=== PATIENT | male | born 1975 | race Caucasian/White ===

== ENCOUNTER → 2017-01-30 | Outpatient (CLI) | payer OTHER ==
[2017-01-02 08:29] VITALS: BP 146/87
== END | disposition home or self-care (01) ==
LOC: PMGWOUND 07:47
PROVIDERS: ATTEND Preventive Medicine Undersea and Hyperbaric Medicine
DX: E11.621 Type 2 diabetes mellitus with foot ulcer (principal); L97.511 Non-pressure chronic ulcer of other part of right foot limited to breakdown of skin; E11.40 Type 2 diabetes mellitus with diabetic neuropathy, unspecified
CPT/HCPCS: 99213

== ENCOUNTER → 2017-02-13 | Outpatient (CLI) | payer OTHER ==
[2017-01-02 08:29] VITALS: BP 146/87
== END | disposition home or self-care (01) ==
LOC: PMGWOUND 07:53
PROVIDERS: ATTEND Preventive Medicine Undersea and Hyperbaric Medicine
DX: E11.621 Type 2 diabetes mellitus with foot ulcer (principal); L97.511 Non-pressure chronic ulcer of other part of right foot limited to breakdown of skin; E11.40 Type 2 diabetes mellitus with diabetic neuropathy, unspecified
CPT/HCPCS: 99214

== ENCOUNTER 2017-03-06 09:54 | Inpatient (IN) | payer OTHER ==
[~2017-03-06] VITALS: Ht 175.3 cm; Wt 100.5 kg
[2017-03-06] MEDS ORDERED: VANCOMYCIN PER PHARMACY MC ONE (10:15)
--- NOTE | 2017-03-06 10:35 | RAD ---
Indication infection lateral metatarsal area. Assess for potential osteomyelitis. AP oblique and lateral views of the right foot were obtained. There is a soft tissue irregularity lateral to the fifth metatarsal head. No acute bony finding is seen. Plain film findings of osteomyelitis are not seen
[2017-03-06 10:36] LABS: BASO # 0.1 x10^3/uL (0.0-0.2); BASO % 0 % (0-3); EOS % 1 % (0-3); HEMATOCRIT 39.9 % (39.0-53.0); HEMOGLOBIN 13.7 g/dL (13.0-17.5); LYMPH # 1.3 x10^3/uL (1.0-4.8); LYMPH % 9 % (24-48); MEAN CORPUSCULAR HEMOGLOBIN 29 pg (25-35); MEAN CORPUSCULAR HGB CONC 34 g/dL (31-37); MEAN CORPUSCULAR VOLUME 84 fL (79-100); MONO % 8 % (0-9); NEUT % 82 % (31-73); PLATELET COUNT 489 x10^3/uL (140-400); RED BLOOD COUNT 4.77 x10^6/uL (4.30-5.70); RED CELL DISTRIBUTION WIDTH 11.8 % (11.5-14.5); WHITE BLOOD COUNT 14.6 x10^3/uL (4.0-11.0)
[2017-03-06 10:45] LABS: CALCIUM 9.4 mg/dL (8.5-10.1); CREATININE 0.7 mg/dL (0.7-1.3); GFR 123.1; POTASSIUM 4.2 mmol/L (3.5-5.1)
[2017-03-06] MEDS ORDERED: ONDANSETRON PF 4 MG/2 ML VIAL. IV PRN (11:00)
[2017-03-06] MEDS ORDERED: IV NORMAL SALINE 1000ML BAG 1,000 ML IV ONE (11:00)
[2017-03-06] MEDS ORDERED: ACETAMINOPHEN 325 MG TABLET. PO PRN (11:00)
[2017-03-06] MEDS ORDERED: VANCOMYCIN 2 GM in IV NORMAL SALINE 500ML BAG 500 ML IV ONE (11:00)
[2017-03-06] MEDS: fentaNYL PF VIAL 100 MCG/2 ML VIAL IV PRN (11:31)
[2017-03-06 12:22] VITALS: BP 157/80
[2017-03-06] MEDS ORDERED: VANCOMYCIN PER PHARMACY MC PRN (12:30)
[2017-03-06] MEDS ORDERED: HYDR-2666 PO (12:35)
--- NOTE | 2017-03-06 12:46 | PHYS DOC ---
Past Medical History Past Medical History: Diabetes-Type II Past Surgical History: Tonsillectomy Alcohol Use: Occasionally Drug Use: None Adult General Chief Complaint Chief Complaint: OTHER COMPLAINTS HPI HPI This is a 41-year-old male who presents with a wound to the right base of his fifth metatarsal. Patient was sent here by Dr. Rainey at the wound clinic for wound evaluation. Dr. Rainey states the patient has had significant deep ulceration to that area with concern for osteomyelitis as well as some noted streaking and cellulitis to the anterior tibial surfaced that has worsened for the last several days. Patient is a known diabetic and is not taking insulin at this time. He states he is in between doctors but should normally be taking insulin. He denies any fever or chills. He is nontoxic and afebrile upon my initial assessment. Review of Systems Review of Systems Constitutional: Denies fever or chills [] Eyes: Denies change in visual acuity, redness, or eye pain [] HENT: Denies nasal congestion or sore throat [] Respiratory: Denies cough or shortness of breath [] Cardiovascular: No additional information not addressed in HPI [] GI: Denies abdominal pain, nausea, vomiting, bloody stools or diarrhea [] : Denies dysuria or hematuria [] Musculoskeletal: Denies back pain or joint pain [] Integument: Denies rash or skin lesions [] Neurologic: Denies headache, focal weakness or sensory changes [] Endocrine: Denies polyuria or polydipsia [] Current Medications Current Medications Current Medications Medications (Trade) Dose Ordered Sig/Madhuri Start Time Stop Time Status Last Admin Dose Admin Acetaminophen (Tylenol) 650 mg PRN Q4HRS PRN 03/06/17 11:00 03/07/17 10:59 Fentanyl Citrate (Fentanyl 2ml Vial) 50 mcg PRN Q2HR PRN 03/06/17 11:00 03/07/17 10:59 03/06/17 11:31 50 MCG Ondansetron HCl (Zofran) 4 mg PRN Q8HRS PRN 03/06/17 11:00 03/07/17 10:59 Sodium Chloride 1,000 ml @ 125 mls/hr Q8H 03/06/17 10:56 03/07/17 10:55 03/06/17 14:01 125 MLS/HR Vancomycin HCl (Vanco Per Pharmacy) 1 each 1X ONCE 03/06/17 10:15 03/06/17 11:48 DC 03/06/17 10:15 1 EACH Vancomycin HCl 2 gm/Sodium Chloride 500 ml @ 250 mls/hr 1X ONCE 03/06/17 11:00 03/06/17 12:59 DC 03/06/17 11:30 250 MLS/HR Allergies Allergies Allergies Coded Allergies Type Severity Reaction Last Updated Verified codeine Allergy Intermediate Hives 08/18/16 Yes Physical Exam Physical Exam Constitutional: Well developed, well nourished, no acute distress, non-toxic appearance. [] HENT: Normocephalic, atraumatic, bilateral external ears normal, oropharynx moist, no oral exudates, nose normal. [] Eyes: PERRLA, EOMI, conjunctiva normal, no discharge. [] Neck: Normal range of motion, no tenderness, supple, no stridor. [] Cardiovascular:Heart rate regular rhythm, no murmur [] Lungs & Thorax: Bilateral breath sounds clear to auscultation [] Abdomen: Bowel sounds normal, soft, no tenderness, no masses, no pulsatile masses. [] Skin: Warm, dry, no erythema, no rash. [] Back: No tenderness, no CVA tenderness. [] Extremities: There is tenderness and significant ulceration to the base of the fifth metatarsal with noted cellulitic stranding extending from the surface of the wound along the dorsum of the foot and to the anterior tibial surface, there is packing in the wound site, no cyanosis, no clubbing, ROM intact, no edema. [] Neurologic: Alert and oriented X 3, normal motor function, normal sensory function, no focal deficits noted. [] Psychologic: Affect normal, judgement normal, mood normal. [] Current Patient Data Vital Signs Vital Signs Date Time Temp Pulse Resp B/P (MAP) Pulse Ox O2 Delivery O2 Flow Rate FiO2 03/06/17 10:20 98.2 96 20 148/81 (103) 97 Room Air 98.2 Lab Values Laboratory Tests Test 03/06/17 10:25 White Blood Count 14.6 x10^3/uL (4.0-11.0) H Red Blood Count 4.77 x10^6/uL (4.30-5.70) Hemoglobin 13.7 g/dL (13.0-17.5) Hematocrit 39.9 % (39.0-53.0) Mean Corpuscular Volume 84 fL (79-100) Mean Corpuscular Hemoglobin 29 pg (25-35) Mean Corpuscular Hemoglobin Concent 34 g/dL (31-37) Red Cell Distribution Width 11.8 % (11.5-14.5) Platelet Count 489 x10^3/uL (140-400) H Neutrophils (%) (Auto) 82 % (31-73) H Lymphocytes (%) (Auto) 9 % (24-48) L Monocytes (%) (Auto) 8 % (0-9) Eosinophils (%) (Auto) 1 % (0-3) Basophils (%) (Auto) 0 % (0-3) Neutrophils # (Auto) 11.9 x10^3uL (1.8-7.7) H Lymphocytes # (Auto) 1.3 x10^3/uL (1.0-4.8) Monocytes # (Auto) 1.2 x10^3/uL (0.0-1.1) H Eosinophils # (Auto) 0.1 x10^3/uL (0.0-0.7) Basophils # (Auto) 0.1 x10^3/uL (0.0-0.2) Sodium Level 134 mmol/L (136-145) L Potassium Level 4.2 mmol/L (3.5-5.1) Chloride Level 95 mmol/L (98-107) L Carbon Dioxide Level 23 mmol/L (21-32) Anion Gap 16 (6-14) H Blood Urea Nitrogen 15 mg/dL (8-26) Creatinine 0.7 mg/dL (0.7-1.3) Estimated GFR (Cockcroft-Gault) 123.1 Glucose Level 269 mg/dL (70-99) H Lactic Acid Level 1.6 mmol/L (0.4-2.0) Calcium Level 9.4 mg/dL (8.5-10.1) Laboratory Tests 03/06/17 10:25 Laboratory Tests 03/06/17 10:25 EKG EKG [] Radiology/Procedures Radiology/Procedures Indication infection lateral metatarsal area. Assess for potential osteomyelitis. AP oblique and lateral views of the right foot were obtained. There is a soft tissue irregularity lateral to the fifth metatarsal head. No acute bony finding is seen. Plain film findings of osteomyelitis are not seen Course & Med Decision Making Course & Med Decision Making Pertinent Labs and Imaging studies reviewed. (See chart for details) Laboratory workup was remarkable for an elevated blood glucose of 269. He also has a leukocytosis. There are no other sniffed it findings. His x-ray taken of the right foot shows some soft tissue irregularity to the lateral fifth metatarsal head but no acute bony finding is seen. There were no findings of osteomyelitis on the plain film. A dose of IV vancomycin was given as the patient has history of staph infection and is unsure if he has any history of resistant infection. His case was discussed with the hospitalist, Dr. Simon, who agreed to accept the patient for further evaluation and treatment. Wound consult to Dr. Rainey was placed and surgery consult was also placed for wound eval and possible debridement. Dragon Disclaimer Dragon Disclaimer This electronic medical record was generated, in whole or in part, using a voice recognition dictation system. Departure Departure Impression: Primary Impression: Type 2 diabetes mellitus with foot ulcer Additional Impression: Cellulitis Disposition: ADMITTED INPATIENT Admitting Physician: Chapis Simon Condition: STABLE Referrals: NO PCP (PCP) Problem Qualifiers LUKAS ROSAS DO March 06, 2017 12:46
--- NOTE | 2017-03-06 13:00 | ACF ---
Admission Forms Criteria CELLULITIS Clinical Indications for Admission to Inpatient Care (Place 'X' for any and all applicable criteria): Admission is indicated for ANY ONE of the following(1)(2)(3)(4)(5): [ ]I. Limb-threatening infection [ ]II. High-risk comorbid condition as indicated by ANY ONE of the following: [ ]a) Uncontrolled diabetes (eg, HbA1c greater than 10% (0.1)) [ ]b) Cirrhosis [ ]c) Neutropenia [ ]d) Asplenia [ ]e) Immunosuppression [ ]f) Symptomatic heart failure [ ]III. Failure of outpatient therapy as indicated by ALL of the following: [ ]a) Progression or no improvement after adequate trial (minimum of 48 hours, with longer period for stable lower extremity infection) [ ]b) Adequate antibiotic regimen as indicated by use of ANY ONE of the following: [ ]i) First-generation cephalosporin (e.g., cephalexin) [ ]ii) Antistaphylococcal penicillin (e.g., dicloxacillin) [ ]iii) Penicillin-allergic patient regimen (clindamycin, extended-spectrum fluoroquinolone, or doxycycline) [ ]iv) Resistant organism (eg, methicillin-resistant Staphylococcus aureus) regimen (6) [ ]c) Outpatient intravenous therapy regimen is not appropriate due to ANY ONE of the following. (7)(8)(9)(10): [ ]i) It was tried and was not successful (eg, progression of infection). [ ]ii) It is not available or cannot be arranged in a clinically appropriate time frame (e.g., the next day). [ ]iii) Clinical presentation (eg, acuity of infection, rapidity of progression, confirmed or suspected bacteremia) is judged to require ALL of the following: [ ]1) Immediate initiation of intravenous therapy ( eg, cannot wait for next day) [ ]2) Intensity of patient monitoring and observation (eg, vital sign measurement, checks for infection progression) that cannot be provided at other than inpatient level of care [ ]IV. Mental status changes [ ]V. Bacteremia [ ]. Hemodynamic instability [ ]VII. Suspected necrotizing soft tissue infection (e.g., gas in tissue)(11)( 12) [ ]VIII. Orbital infection (13)(14) [ ]IX. Associated surgical procedure (e.g., abscess drainage, debridement) not amenable to outpatient, emergency department, or observation care [ ]X. Cutaneous gangrene [ ]XI. High fever (temperature greater than 39.5 degrees C (103.1 degrees F) (oral)) not responsive to outpatient, emergency department, or observation care therapy [X]XIII. Inpatient admission required rather than observation care (Also use Cellulitis: Observation Care as appropriate) because of ANY ONE of the following : [ ]a) Periorbital or perineal infection that is severe or worsening [ ]b) Severe pain requiring acute inpatient management [ ]c) IV fluid to replace significant ongoing (e.g., for over 24 hours) losses (greater than 3L/m2 per day) [ ]d) Compartment syndrome monitoring (17) [ ]e) Strict or protective (eg, laminar flow) isolation [ ]f) Urgent debridement or skin grafting [ ]g) Bone or joint debridement [ ]h) Immediate inpatient surgery [X]i) Other condition, treatment or monitoring requiring inpatient admission Extended stay beyond goal length of stay may be needed for (1)(18): [ ]a) Necrotizing soft tissue infection or fasciitis [ ]b) Gram-negative infection [ ]c) Methicillin-resistant Staphylococcal aureus (MRSA) infection [ ]d) Peripheral venous insufficiency with cellulitis [ ]e) Extensive edema [ ]f) Sepsis or continued Hemodynamic instability [ ]g) Continued high fever or mental status change [ ]h) Bacteremia [ ]i) Active serious comorbid conditions ( eg, heart failure, renal insufficiency) The original [facility] content created by [facility] has been revised. The portions of the content which have been revised are identified through the use of italic text or in bold, and [facility] has neither reviewed nor approved the modified material. All other unmodified content is copyright [facility] [employer] Please see references footnoted in the original [facility] [employer] edition 2016 Admission Criteria Met?: Yes KARLEY JONES March 06, 2017 13:00
[2017-03-06 13:10] VITALS: BP 151/80
--- NOTE | 2017-03-06 13:20 | PDOC ---
Infectious Disease Note Vital Sign Vital Signs Vital Signs Date Time Temp Pulse Resp B/P (MAP) Pulse Ox O2 Delivery O2 Flow Rate FiO2 03/06/17 13:10 97.9 95 18 151/80 (103) 99 Room Air 97.9 Labs Lab Laboratory Tests Test 03/06/17 10:25 White Blood Count 14.6 x10^3/uL (4.0-11.0) Red Blood Count 4.77 x10^6/uL (4.30-5.70) Hemoglobin 13.7 g/dL (13.0-17.5) Hematocrit 39.9 % (39.0-53.0) Mean Corpuscular Volume 84 fL (79-100) Mean Corpuscular Hemoglobin 29 pg (25-35) Mean Corpuscular Hemoglobin Concent 34 g/dL (31-37) Red Cell Distribution Width 11.8 % (11.5-14.5) Platelet Count 489 x10^3/uL (140-400) Neutrophils (%) (Auto) 82 % (31-73) Lymphocytes (%) (Auto) 9 % (24-48) Monocytes (%) (Auto) 8 % (0-9) Eosinophils (%) (Auto) 1 % (0-3) Basophils (%) (Auto) 0 % (0-3) Neutrophils # (Auto) 11.9 x10^3uL (1.8-7.7) Lymphocytes # (Auto) 1.3 x10^3/uL (1.0-4.8) Monocytes # (Auto) 1.2 x10^3/uL (0.0-1.1) Eosinophils # (Auto) 0.1 x10^3/uL (0.0-0.7) Basophils # (Auto) 0.1 x10^3/uL (0.0-0.2) Sodium Level 134 mmol/L (136-145) Potassium Level 4.2 mmol/L (3.5-5.1) Chloride Level 95 mmol/L (98-107) Carbon Dioxide Level 23 mmol/L (21-32) Anion Gap 16 (6-14) Blood Urea Nitrogen 15 mg/dL (8-26) Creatinine 0.7 mg/dL (0.7-1.3) Estimated GFR (Cockcroft-Gault) 123.1 Glucose Level 269 mg/dL (70-99) Lactic Acid Level 1.6 mmol/L (0.4-2.0) Calcium Level 9.4 mg/dL (8.5-10.1) Objective Assessment Rt foot wound Rt foot cellulitis DM Plan Plan of Care vanc and rocephine culture taken off load mri EFRAIN CLAROS MD March 06, 2017 13:20
[2017-03-06] MEDS ORDERED: LISINOPRIL 10 MG TABLET PO ONE (14:00)
[2017-03-06] MEDS ORDERED: DEXTROSE 50% 25 GM / 50ML DISP.SYRIN. IV PRN (14:00)
[2017-03-06] MEDS: IV NORMAL SALINE 1000ML BAG 1,000 ML IV SCH ×2 (14:01→18:56)
[2017-03-06 14:45] VITALS: BP 138/74
--- NOTE | 2017-03-06 15:43 | PDOC1 ---
History and Physical Date of Admission Date of Admission DATE: 03/06/17 TIME: 15:32 Identification/Chief Complaint Chief Complaint foot pain Problems: Source Source: Chart review, Patient History of Present Illness History of Present Illness Mr. Ma is a 41-year-old male admit w. acute worsening of wound to the right base of his fifth metatarsal. Dr. 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 DM2, some intentional weight loss, pt off meds for 6 mos, as he is changing doctors. no current meds, but has insurance. Wound has good blood flow per wound care, base bleeds brinkly with min provocation and base has granualated nicely. now, new concern for osteomyelitis as well as some noted streaking and cellulitis to the anterior tibial Past Medical History Cardiovascular: No pertinent hx Pulmonary: No pertinent hx GI: No pertinent hx Heme/Onc: No pertinent hx Hepatobiliary: No pertinent hx Endocrine: Diabetes Past Surgical History Past Surgical History: No pertinent history Family History Family History: No Significant Social History Smoke: No ALCOHOL: none Drugs: None Current Problem List Problem List Problems Medical Problems: (1) Cellulitis Status: Acute (2) Type 2 diabetes mellitus with foot ulcer Status: Acute Problems: Current Medications Current Medications Current Medications Vancomycin HCl (Vanco Per Pharmacy) 1 each 1X ONCE MC Last administered on 03/06 10:15; Start 03/06/17 at 10:15; Stop 03/06/17 at 11:48; Status DC Vancomycin HCl 2 gm/Sodium Chloride 500 ml @ 250 mls/hr 1X ONCE IV Last administered on 03/06/17 11:30; Start 03/06/17 at 11:00; Stop 03/06/17 at 12:59; Status DC Sodium Chloride 1,000 ml @ 1,000 mls/hr 1X ONCE IV Last administered on 11:30; Start 03/06/17 at 11:00; Stop 03/06/17 at 11:59; Status DC Ondansetron HCl (Zofran) 4 mg PRN Q8HRS PRN IV NAUSEA/VOMITING; Start 03/06/17 at 11:00; Stop 03/07/17 at 10:59 Fentanyl Citrate (Fentanyl 2ml Vial) 50 mcg PRN Q2HR PRN IV PAIN Last administered on 03/06/17 11:31; Start 03/06/17 at 11:00; Stop 03/07/17 at 10:59 Sodium Chloride 1,000 ml @ 125 mls/hr Q8H IV Last administered on 03/06/17 14: 01; Start 03/06/17 at 10:56; Stop 03/07/17 at 10:55 Acetaminophen (Tylenol) 650 mg PRN Q4HRS PRN PO FEVER; Start 03/06/17 at 11:00; Stop 03/07/17 at 10:59 Vancomycin HCl 1.5 gm/Sodium Chloride 500 ml @ 250 mls/hr Q8H IV ; Start at 17:30 Vancomycin HCl 1 each 1X ONCE MC ; Start 03/07/17 at 11:00; Stop 03/07/17 at 11: 01 Vancomycin HCl (Vanco Per Pharmacy) 1 each PRN DAILY PRN MC PRN; Start 03/06/17 at 12:30 Ceftriaxone Sodium 1 gm/ Sodium Chloride 50 ml @ 100 mls/hr Q24H IV Last administered on 03/06/17 14:00; Start 03/06/17 at 13:30 Acetaminophen/ Hydrocodone Bitart (Lortab 7.5/325) 1 tab PRN Q4HRS PRN PO PAIN ; Start 03/06/17 at 14:00 Insulin Aspart (Novolog) 0-9 UNITS TIDWMEALS SQ ; Start 03/06/17 at 17:00 Dextrose (Dextrose 50%-Water Syringe) 12.5 gm PRN Q15MIN PRN IV SEE COMMENTS; Start 03/06/17 at 14:00 Insulin Detemir (Levemir) 12 units QHS SQ ; Start 03/06/17 at 21:00 Lisinopril (Prinivil) 10 mg 1X ONCE PO Last administered on 03/06/17 14:14; Start 03/06/17 at 14:00; Stop 03/06/17 at 14:01; Status DC Lisinopril (Prinivil) 10 mg DAILY PO ; Start 03/07/17 at 09:00 Active Scripts Active Reported Hydrocodone-Apap 5-325 (Hydrocodone Bit/Acetaminophen) 1 Each Tablet 1 Tab PO PRN Q6HRS PRN Allergies Allergies: Coded Allergies: codeine (Verified Allergy, Intermediate, Hives, 08/18/16) ROS General: No: Chills, Night Sweats, Fatigue, Malaise, Appetite, Other PSYCHOLOGICAL ROS: No: Anxiety, Behavioral Disorder, Concentration difficultie , Decreased libido, Depression, Disorientation, Hallucinations, Hostility, Irritablity, Memory difficulties, Mood Swings, Obsessive thoughts, Physical abuse, Sexual abuse, Sleep disturbances, Suicidal ideation, Other Eyes: No Blurry vision, No Decreased vision, No Double vision, No Dry eyes, No Excessive tearing, No Eye Pain, No Itchy Eyes, No Loss of vision, No Photophobia , No Scotomata, No Uses contacts, No Uses glasses, No Other HEENT: No: Heacaches, Visual Changes, Hearing change, Nasal congestion, Nasal discharge, Oral lesions, Sinus pain, Sore Throat, Epistaxis, Sneezing, Snoring, Tinnitus, Vertigo, Vocal changes, Other Respiratory: No: Cough, Hemoptysis, Orthopnea, Pleuritic Pain, Shortness of breath, SOB with excertion, Sputum Changes, Stridor, Tachypnea, Wheezing, Other Cardiovascular: No Chest Pain, No Palpitations, No Orthopnea, No Paroxysmal Noc. Dyspnea, No Edema, No Lt Headedness, No Other Gastrointestinal: No Nausea, No Vomiting, No Abdominal Pain, No Diarrhea, No Constipation, No Melena, No Hematochezia, No Other Genitourinary: No Dysuria, No Frequency, No Incontinence, No Hematuria, No Retention, No Discharge, No Urgency, No Pain, No Flank Pain, No Other, No , No , No , No , No , No , No Musculoskeletal: Yes Gait Disturbance, Yes Joint Pain, Yes Pain In: (foot), No Joint Stiffness, No Joint Swelling, No Muscle Pain, No Muscular Weakness, No Swelling In:, No Other Neurological: Yes Gait Disturbance, No Behavorial Changes, No Bowel/Bladder ControlChng, No Confusion, No Dizziness, No Headaches, No Impaired Coord/balance, No Memory Loss, No Numbness/ Tingling, No Seizures, No Speech Problems, No Tremors, No Visual Changes, No Weakness, No Other Skin: No Dry Skin, No Eczema, No Hair Changes, No Lumps, No Mole Changes, No Mottling, No Nail Changes, No Pruritus, No Rash, No Skin Lesion Changes, No Other, No Acne Physical Exam General: Alert, Oriented X3, Cooperative, No acute distress HEENT: Atraumatic, PERRLA, EOMI, Mucous membr. moist/pink Lungs: Clear to auscultation, Normal air movement Heart: S1S2, no gallops, no murmurs Abdomen: Normal bowel sounds, Soft Rectal Exam: not examined Extremities: No clubbing, No edema Skin: Other (ulceration and breakdown with some light bleeding from right lateral foot) Neuro: Normal gait, Normal tone, Sensation intact, Cranial nerves 3-12 NL Psych/Mental Status: Mental status NL, Mood NL Vitals Vitals Vital Signs Date Time Temp Pulse Resp B/P (MAP) Pulse Ox O2 Delivery O2 Flow Rate FiO2 03/06/17 14:14 95 151/80 03/06/17 13:33 Room Air 03/06/17 13:10 97.9 18 99 97.9 Labs Labs Laboratory Tests Test 03/06/17 10:25 White Blood Count 14.6 x10^3/uL (4.0-11.0) Red Blood Count 4.77 x10^6/uL (4.30-5.70) Hemoglobin 13.7 g/dL (13.0-17.5) Hematocrit 39.9 % (39.0-53.0) Mean Corpuscular Volume 84 fL (79-100) Mean Corpuscular Hemoglobin 29 pg (25-35) Mean Corpuscular Hemoglobin Concent 34 g/dL (31-37) Red Cell Distribution Width 11.8 % (11.5-14.5) Platelet Count 489 x10^3/uL (140-400) Neutrophils (%) (Auto) 82 % (31-73) Lymphocytes (%) (Auto) 9 % (24-48) Monocytes (%) (Auto) 8 % (0-9) Eosinophils (%) (Auto) 1 % (0-3) Basophils (%) (Auto) 0 % (0-3) Neutrophils # (Auto) 11.9 x10^3uL (1.8-7.7) Lymphocytes # (Auto) 1.3 x10^3/uL (1.0-4.8) Monocytes # (Auto) 1.2 x10^3/uL (0.0-1.1) Eosinophils # (Auto) 0.1 x10^3/uL (0.0-0.7) Basophils # (Auto) 0.1 x10^3/uL (0.0-0.2) Erythrocyte Sedimentation Rate 99 (0-15) Sodium Level 134 mmol/L (136-145) Potassium Level 4.2 mmol/L (3.5-5.1) Chloride Level 95 mmol/L (98-107) Carbon Dioxide Level 23 mmol/L (21-32) Anion Gap 16 (6-14) Blood Urea Nitrogen 15 mg/dL (8-26) Creatinine 0.7 mg/dL (0.7-1.3) Estimated GFR (Cockcroft-Gault) 123.1 Glucose Level 269 mg/dL (70-99) Lactic Acid Level 1.6 mmol/L (0.4-2.0) Calcium Level 9.4 mg/dL (8.5-10.1) Laboratory Tests Test 03/06/17 10:25 White Blood Count 14.6 x10^3/uL (4.0-11.0) Red Blood Count 4.77 x10^6/uL (4.30-5.70) Hemoglobin 13.7 g/dL (13.0-17.5) Hematocrit 39.9 % (39.0-53.0) Mean Corpuscular Volume 84 fL (79-100) Mean Corpuscular Hemoglobin 29 pg (25-35) Mean Corpuscular Hemoglobin Concent 34 g/dL (31-37) Red Cell Distribution Width 11.8 % (11.5-14.5) Platelet Count 489 x10^3/uL (140-400) Neutrophils (%) (Auto) 82 % (31-73) Lymphocytes (%) (Auto) 9 % (24-48) Monocytes (%) (Auto) 8 % (0-9) Eosinophils (%) (Auto) 1 % (0-3) Basophils (%) (Auto) 0 % (0-3) Neutrophils # (Auto) 11.9 x10^3uL (1.8-7.7) Lymphocytes # (Auto) 1.3 x10^3/uL (1.0-4.8) Monocytes # (Auto) 1.2 x10^3/uL (0.0-1.1) Eosinophils # (Auto) 0.1 x10^3/uL (0.0-0.7) Basophils # (Auto) 0.1 x10^3/uL (0.0-0.2) Erythrocyte Sedimentation Rate 99 (0-15) Sodium Level 134 mmol/L (136-145) Potassium Level 4.2 mmol/L (3.5-5.1) Chloride Level 95 mmol/L (98-107) Carbon Dioxide Level 23 mmol/L (21-32) Anion Gap 16 (6-14) Blood Urea Nitrogen 15 mg/dL (8-26) Creatinine 0.7 mg/dL (0.7-1.3) Estimated GFR (Cockcroft-Gault) 123.1 Glucose Level 269 mg/dL (70-99) Lactic Acid Level 1.6 mmol/L (0.4-2.0) Calcium Level 9.4 mg/dL (8.5-10.1) VTE Prophylaxis Ordered VTE Prophylaxis Devices: No VTE Pharmacological Prophylaxi: Yes Assessment/Plan Assessment/Plan acute on chronic wound to lateral foot near 5th metatarsal,. cellulitis, concern for osteomyelitils, tachycardia, leukocytosis, Sepsis ESR high MRI ordered ID, vascular consulted DM2, off meds, start insulin, metformin low dose, check A1c hgb swab nares for staff screen LUI BHARDWAJ MD March 06, 2017 15:43
[2017-03-06] MEDS ORDERED: POLYETHYLENE GLYCOL 3350 17 GM PACKET. PO PRN (15:45)
[2017-03-06] MEDS: HYDROcodone/APAP 7.5/325MG 1 TAB TABLET PO PRN ×2 (15:54→21:10)
[2017-03-06] MEDS ORDERED: GADOBUTROL 10 MMOL/10 ML VIAL IV ONE (16:45)
[2017-03-06] MEDS ORDERED: metFORMIN 500 MG TABLET PO SCH (17:00)
[2017-03-06] MEDS: VANCOMYCIN 1.5 GM in IV NORMAL SALINE 500ML BAG 500 ML IV SCH (17:32)
[2017-03-06] MEDS: INSULIN ASPART 300 UNITS/3 ML INSULN.PEN SQ SCH ×2 (17:39)
[2017-03-06 19:00] VITALS: BP 109/62
[2017-03-06] MEDS: INSULIN DETEMIR 300 UNITS/3 ML INSULN.PEN. SQ SCH (21:17)
[2017-03-06 23:00] VITALS: BP 121/67
[2017-03-07] MEDS: VANCOMYCIN 1.5 GM in IV NORMAL SALINE 500ML BAG 500 ML IV SCH ×3 (01:56→21:46)
[2017-03-07] MEDS: IV NORMAL SALINE 1000ML BAG 1,000 ML IV SCH (01:56)
[2017-03-07 03:00] VITALS: BP 146/80
--- NOTE | 2017-03-07 04:25 | CONS ---
DATE OF CONSULTATION: 03/06/2017 REQUESTING PHYSICIAN: Dr. Simon. REASON FOR CONSULTATION: Foot infection. HISTORY OF PRESENT ILLNESS: This is a 41-year-old gentleman with history of diabetes, who has had problem with his feet, in the past of left foot, but now for the last several months, the patient has been having breakdown on the right foot on the fifth metatarsal head area. [facility] and evidently he went in August, then October, and November and now, he was recommended to come into the hospital. The patient has open wound with marjan pus coming out of the plantar surface and lateral surface as well as the redness was spreading into the foot and towards the ankle and leg. The patient also has leukocytosis. Denies any fever. Denies any trauma. Denies any nausea, vomiting, diarrhea, chest pain, or shortness of breath. The patient's blood sugar has not been under control, he says and he has been walking on it. PAST MEDICAL HISTORY: Positive for diabetes mellitus. The patient has had similar ulcer on the left foot, which took long time to heal, but it healed and this ulcer on the right side has been going on since August. SOCIAL HISTORY: Negative for smoking, alcohol, or illicit drug use. ALLERGIES: No known drug allergies. CURRENT MEDICATIONS: The patient is started on vancomycin. REVIEW OF SYSTEMS: As per HPI, all other systems reviewed are negative. PHYSICAL EXAMINATION: GENERAL: Alert and oriented gentleman, not in distress. VITAL SIGNS: Stable, afebrile. HEENT: NAD. NECK: Supple, no JVD, no lymphadenopathy. LUNGS: Clear. HEART: S1, S2 regular. ABDOMEN: Benign. EXTREMITIES: No edema or cyanosis. The patient's right foot has an ulcer on the fifth metatarsal head area on the plantar and lateral surface with marjan pus pouring out. The patient also has some redness, it is streaking into the foot and into the leg. NEUROLOGIC: The patient is neurologically intact. Dorsalis pedis is palpable. LABORATORY DATA: White count is 14.6. BUN and creatinine is normal. His glucose is 269. X-ray of the foot done, which showed no acute bony findings. IMPRESSION: 1. Right foot, diabetic foot infection with infected ulcer. 2. Right foot cellulitis. 3. Leukocytosis. 4. Diabetes. RECOMMENDATION: I would continue add Rocephin. We will get MRI of the right foot, culture was done. Supportive care and we will continue to follow. Thank you very much, Dr. Simon, for giving me the opportunity to participate in this patient's care. EFRAIN CLAROS MD DR: CARLOS/ayaz JOB#: [id number] / [id number]
[2017-03-07 07:00] VITALS: BP 124/64
[2017-03-07] MEDS: INSULIN ASPART 300 UNITS/3 ML INSULN.PEN SQ SCH ×6 (07:30→17:20)
--- NOTE | 2017-03-07 07:56 | PDOC ---
Provider Note Provider Note (please see full dictation) 41 yo male with DM and peripheral neuropathy presents with right lateral foot ulcer. He has erythema extending up the proximal aspect of the with purulent drainage. Discussed options of care including risks and benefits. Would recommend right foot debridement with possible 5th toe amputation. After discussing the risks and benefits, he elects to proceed. Continue broad spectrum antibiotics. TAMELA FROST MD March 07, 2017 07:56
[2017-03-07] MEDS ORDERED: ONDANSETRON PF 4 MG/2 ML VIAL. IV PRN ×2 (08:23→08:45)
[2017-03-07] MEDS: fentaNYL PF VIAL 100 MCG/2 ML VIAL IV PRN ×3 (08:29→10:49)
[2017-03-07] MEDS ORDERED: IV RINGERS,LACTATED 1000ML 1,000 ML IV SCH (08:31)
[2017-03-07] MEDS ORDERED: PROPOFOL 20 ML IV ONE (08:34)
[2017-03-07] MEDS ORDERED: DEXAMETHASONE SOD PHOS 20 MG/5 ML VIAL. ONE (08:34)
[2017-03-07] MEDS ORDERED: LIDOCAINE 2% PF Vial for OR 5 ML VIAL. ONE (08:34)
[2017-03-07] MEDS ORDERED: LIDOCAINE 1% 1 ML SYRINGE. ID PRN (08:45)
[2017-03-07] MEDS ORDERED: fentaNYL PF VIAL 100 MCG/2 ML VIAL IV PRN (08:45)
[2017-03-07] MEDS ORDERED: PROCHLORPERAZINE 10 MG/2 ML VIAL. IV PRN (08:45)
[2017-03-07] MEDS ORDERED: fentaNYL PF VIAL 250 MCG/5 ML VIAL ONE (08:57)
[2017-03-07] MEDS: DOCUSATE SODIUM 100 MG CAPSULE. PO SCH (09:00)
[2017-03-07] MEDS ORDERED: LIDOCAINE 1% PF 30 ML VIAL. ONE (09:03)
[2017-03-07] MEDS ORDERED: silver sulfADIAZINE 1% CREAM 25GM TUBE. TP ONE (09:03)
[2017-03-07] MEDS ORDERED: SEVOFLURANE 31 TO 60 MINUTES. IH ONE (09:43)
--- NOTE | 2017-03-07 10:10 | PDOC ---
BRIEF OPERATIVE NOTE Pre-Op Diagnosis Right foot abscess DM Cellulitis Post-Op Diagnosis same Procedure Performed Right foot debridement Surgeon Patricia Creative Producer none Anesthesia Type: General Blood Loss 5ml Findings none Complications none TAMELA FROST MD March 07, 2017 10:09
[2017-03-07] MEDS: LISINOPRIL 10 MG TABLET PO SCH (11:04)
--- NOTE | 2017-03-07 11:17 | PDOC ---
PROGRESS NOTES Chief Complaint Chief Complaint acute on chronic wound to lateral foot near 5th metatarsal,. cellulitis, concern for osteomyelitils, tachycardia, leukocytosis, Sepsis DM 2 hgba1c pending Diarrhea from metformin History of Present Illness History of Present Illness Out having OR ] lab reviewed Refuses metformin bec causes him diarrhea PLAn: Await from OR SSI Pt/OT WOund care Follow ID and vasc sx recs Dw RN Vitals Vitals Vital Signs Date Time Temp Pulse Resp B/P (MAP) Pulse Ox O2 Delivery O2 Flow Rate FiO2 03/07/17 11:11 94 Room Air 03/07/17 11:04 84 102/58 03/07/17 10:35 16 03/07/17 10:05 98.4 98.4 Physical Exam General: Alert, Oriented X3, Cooperative, No acute distress Abdomen: Normal bowel sounds, Soft Extremities: No clubbing, No edema Skin: Other (ulceration and breakdown with some light bleeding from right lateral foot) Labs LABS Laboratory Tests Test 03/06/17 17:33 03/06/17 20:56 03/07/17 07:22 03/07/17 10:29 Glucose (Fingerstick) 187 mg/dL (70-99) 196 mg/dL (70-99) 204 mg/dL (70-99) 209 mg/dL (70-99) Review of Systems Review of Systems out having OR Assessment and Plan Assessmemt and Plan Problems Medical Problems: (1) Cellulitis Status: Acute (2) Type 2 diabetes mellitus with foot ulcer Status: Acute Problems: Comment Review of Relevant I have reviewed the following items gabrielle (where applicable) has been applied. Labs Laboratory Tests Test 03/06/17 10:25 03/06/17 17:33 03/06/17 20:56 03/07/17 07:22 White Blood Count 14.6 x10^3/uL (4.0-11.0) Red Blood Count 4.77 x10^6/uL (4.30-5.70) Hemoglobin 13.7 g/dL (13.0-17.5) Hematocrit 39.9 % (39.0-53.0) Mean Corpuscular Volume 84 fL (79-100) Mean Corpuscular Hemoglobin 29 pg (25-35) Mean Corpuscular Hemoglobin Concent 34 g/dL (31-37) Red Cell Distribution Width 11.8 % (11.5-14.5) Platelet Count 489 x10^3/uL (140-400) Neutrophils (%) (Auto) 82 % (31-73) Lymphocytes (%) (Auto) 9 % (24-48) Monocytes (%) (Auto) 8 % (0-9) Eosinophils (%) (Auto) 1 % (0-3) Basophils (%) (Auto) 0 % (0-3) Neutrophils # (Auto) 11.9 x10^3uL (1.8-7.7) Lymphocytes # (Auto) 1.3 x10^3/uL (1.0-4.8) Monocytes # (Auto) 1.2 x10^3/uL (0.0-1.1) Eosinophils # (Auto) 0.1 x10^3/uL (0.0-0.7) Basophils # (Auto) 0.1 x10^3/uL (0.0-0.2) Erythrocyte Sedimentation Rate 99 (0-15) Sodium Level 134 mmol/L (136-145) Potassium Level 4.2 mmol/L (3.5-5.1) Chloride Level 95 mmol/L (98-107) Carbon Dioxide Level 23 mmol/L (21-32) Anion Gap 16 (6-14) Blood Urea Nitrogen 15 mg/dL (8-26) Creatinine 0.7 mg/dL (0.7-1.3) Estimated GFR (Cockcroft-Gault) 123.1 Glucose Level 269 mg/dL (70-99) Lactic Acid Level 1.6 mmol/L (0.4-2.0) Calcium Level 9.4 mg/dL (8.5-10.1) Glucose (Fingerstick) 187 mg/dL (70-99) 196 mg/dL (70-99) 204 mg/dL (70-99) Test 03/07/17 10:29 Glucose (Fingerstick) 209 mg/dL (70-99) Laboratory Tests Test 03/06/17 17:33 03/06/17 20:56 03/07/17 07:22 03/07/17 10:29 Glucose (Fingerstick) 187 mg/dL (70-99) 196 mg/dL (70-99) 204 mg/dL (70-99) 209 mg/dL (70-99) Microbiology 03/06/17 Blood Culture - Preliminary, Resulted NO GROWTH AFTER 1 DAY 03/06/17 Gram Stain - Final, Complete Medications Current Medications Vancomycin HCl (Vanco Per Pharmacy) 1 each 1X ONCE MC Last administered on 03/06 10:15; Start 03/06/17 at 10:15; Stop 03/06/17 at 11:48; Status DC Vancomycin HCl 2 gm/Sodium Chloride 500 ml @ 250 mls/hr 1X ONCE IV Last administered on 03/06/17 11:30; Start 03/06/17 at 11:00; Stop 03/06/17 at 12:59; Status DC Sodium Chloride 1,000 ml @ 1,000 mls/hr 1X ONCE IV Last administered on 11:30; Start 03/06/17 at 11:00; Stop 03/06/17 at 11:59; Status DC Ondansetron HCl (Zofran) 4 mg PRN Q8HRS PRN IV NAUSEA/VOMITING; Start 03/06/17 at 11:00; Stop 03/07/17 at 08:24; Status DC Fentanyl Citrate (Fentanyl 2ml Vial) 50 mcg PRN Q2HR PRN IV PAIN Last administered on 03/07/17 08:29; Start 03/06/17 at 11:00; Stop 03/07/17 at 10:59; Status DC Sodium Chloride 1,000 ml @ 125 mls/hr Q8H IV Last administered on 03/07/17 01: 56; Start 03/06/17 at 10:56; Stop 03/07/17 at 10:55; Status DC Acetaminophen (Tylenol) 650 mg PRN Q4HRS PRN PO FEVER; Start 03/06/17 at 11:00; Stop 03/07/17 at 10:59; Status DC Vancomycin HCl 1.5 gm/Sodium Chloride 500 ml @ 250 mls/hr Q8H IV Last administered on 03/07/17 08:30; Start 03/06/17 at 17:30 Vancomycin HCl 1 each 1X ONCE MC ; Start 03/07/17 at 17:00; Stop 03/07/17 at 17: 01 Vancomycin HCl (Vanco Per Pharmacy) 1 each PRN DAILY PRN MC PRN; Start 03/06/17 at 12:30 Ceftriaxone Sodium 1 gm/ Sodium Chloride 50 ml @ 100 mls/hr Q24H IV Last administered on 03/06/17 14:00; Start 03/06/17 at 13:30 Acetaminophen/ Hydrocodone Bitart (Lortab 7.5/325) 1 tab PRN Q4HRS PRN PO PAIN Last administered on 03/06/17 21:10; Start 03/06/17 at 14:00 Insulin Aspart (Novolog) 0-9 UNITS TIDWMEALS SQ Last administered on 03/07/17 08:37; Start 03/06/17 at 17:00 Dextrose (Dextrose 50%-Water Syringe) 12.5 gm PRN Q15MIN PRN IV SEE COMMENTS; Start 03/06/17 at 14:00 Insulin Detemir (Levemir) 12 units QHS SQ Last administered on 03/06/17 21:17; Start 03/06/17 at 21:00 Lisinopril (Prinivil) 10 mg 1X ONCE PO Last administered on 03/06/17 14:14; Start 03/06/17 at 14:00; Stop 03/06/17 at 14:01; Status DC Lisinopril (Prinivil) 10 mg DAILY PO Last administered on 03/07/17 11:04; Start 03/07/17 at 09:00 Insulin Aspart (Novolog) 8 units TIDAC SQ Last administered on 03/06/17 17:39; Start 03/06/17 at 16:30 Docusate Sodium (Colace) 100 mg DAILY PO ; Start 03/07/17 at 09:00 Polyethylene Glycol (miraLAX PACKET) 17 gm PRN DAILY PRN PO CONSTIPATION; Start 03/06/17 at 15:45 Metformin HCl (Glucophage) 500 mg BIDWMEALS PO ; Start 03/06/17 at 17:00; Stop at 18:15; Status DC Gadobutrol (Gadavist) 10 mmol 1X ONCE IV Last administered on 03/06/17 16:57; Start 03/06/17 at 16:45; Stop 03/06/17 at 16:46; Status DC Ondansetron HCl (Zofran) 4 mg PRN Q6HRS PRN IV NAUSEA/VOMITING; Start 03/07/17 at 08:23; Stop 03/08/17 at 08:22 Ondansetron HCl (Zofran) 4 mg PRN Q6HRS PRN IV NAUSEA/VOMITING; Start 03/07/17 at 08:45; Stop 03/08/17 at 08:44 Fentanyl Citrate (Fentanyl 2ml Vial) 25 mcg PRN Q5MIN PRN IV MILD PAIN; Start 03/07/17 at 08:45; Stop 03/07/17 at 18:00 Fentanyl Citrate (Fentanyl 2ml Vial) 50 mcg PRN Q5MIN PRN IV MODERATE PAIN Last administered on 03/07/17t 10:49; Start 03/07/17 at 08:45; Stop 03/07/17 at 18: 00 Ringer's Solution 1,000 ml @ 0 mls/hr Q0M IV ; Start 03/07/17 at 08:31; Stop 03/07/17 at 20:30 Lidocaine HCl 2 ml PRN 1X PRN ID PRIOR TO IV START; Start 03/07/17 at 08:45; Stop 03/07/17 at 18:00 Prochlorperazine Edisylate (Compazine) 5 mg PACU PRN PRN IV NAUSEA, MRX1; Start 03/07/17 at 08:45; Stop 03/07/17 at 18:00 Dexamethasone Sodium Phosphate (Decadron) 20 mg STK-MED ONCE .ROUTE ; Start 03/07 at 08:34; Stop 03/07/17 at 08:35; Status DC Propofol 20 ml @ As Directed STK-MED ONCE IV ; Start 03/07/17 at 08:34; Stop 03/07 at 08:35; Status DC Lidocaine HCl (Lidocaine Pf 2% Vial) 5 ml STK-MED ONCE .ROUTE ; Start 03/07/17 at 08:34; Stop 03/07/17 at 08:35; Status DC Fentanyl Citrate (Fentanyl 5ml Vial) 250 mcg STK-MED ONCE .ROUTE ; Start at 08:57; Stop 03/07/17 at 08:58; Status DC Silver Sulfadiazine (Silvadene) 25 lillian STK-MED ONCE TP ; Start 03/07/17 at 09:03 ; Stop 03/07/17 at 09:04; Status DC Lidocaine HCl 30 ml STK-MED ONCE .ROUTE ; Start 03/07/17 at 09:03; Stop 03/07/17 at 09:04; Status DC Sevoflurane (Ultane) 30 ml STK-MED ONCE IH ; Start 03/07/17 at 09:43; Stop at 09:44; Status DC Active Scripts Active Reported Hydrocodone-Apap 5-325 (Hydrocodone Bit/Acetaminophen) 1 Each Tablet 1 Tab PO PRN Q6HRS PRN Vitals/I & O Vital Sign - Last 24 Hours 03/06/17 03/06/17 03/06/17 03/06/17 11:31 12:22 13:09 13:10 Temp 97.9 97.9 97.9 97.9 Pulse 95 95 Resp 16 18 14 18 B/P (MAP) 157/80 (105) 151/80 (103) Pulse Ox 98 99 99 O2 Delivery Room Air Room Air Room Air Room Air 03/06/17 03/06/17 03/06/17 03/06/17 13:33 14:14 14:45 15:54 Temp 97.5 97.5 Pulse 95 96 Resp 18 14 B/P (MAP) 151/80 138/74 (95) Pulse Ox 98 O2 Delivery Room Air Room Air Room Air 03/06/17 03/06/17 03/06/17 03/06/17 19:00 20:00 21:10 22:10 Temp 97.9 97.9 Pulse 94 Resp 18 18 B/P (MAP) 109/62 (78) Pulse Ox 97 O2 Delivery Room Air Room Air Room Air Room Air 03/06/17 03/07/17 03/07/17 03/07/17 23:00 03:00 07:00 08:00 Temp 97.9 97.7 97.5 97.9 97.7 97.5 Pulse 88 82 84 Resp 18 18 18 B/P (MAP) 121/67 (85) 146/80 (102) 124/64 (84) Pulse Ox 97 97 98 O2 Delivery Room Air Room Air Room Air Room Air 03/07/17 03/07/17 03/07/17 03/07/17 08:29 10:05 10:20 10:35 Temp 98.4 98.4 Pulse 86 86 Resp 16 16 18 B/P (MAP) 113/61 106/59 Pulse Ox 100 95 O2 Delivery Room Air Room Air Room Air Room Air 03/07/17 03/07/17 03/07/17 10:35 11:04 11:11 Pulse 84 84 Resp 16 B/P (MAP) 102/58 102/58 Pulse Ox 94 94 O2 Delivery Room Air Room Air Intake and Output 03/06/17 03/06/17 03/07/17 14:59 22:59 06:59 Intake Total 500 ml 350 ml Balance 500 ml 350 ml FABIO MENCHACA MD March 07, 2017 11:17
[2017-03-07 11:43] VITALS: BP 111/61
[2017-03-07 11:54] LABS: BASO # 0.1 x10^3/uL (0.0-0.2); BASO % 1 % (0-3); EOS % 1 % (0-3); HEMOGLOBIN 11.5 g/dL (13.0-17.5); LYMPH # 0.8 x10^3/uL (1.0-4.8); LYMPH % 8 % (24-48); MEAN CORPUSCULAR HEMOGLOBIN 28 pg (25-35); MEAN CORPUSCULAR HGB CONC 33 g/dL (31-37); MEAN CORPUSCULAR VOLUME 85 fL (79-100); MONO % 5 % (0-9); NEUT % 85 % (31-73); PLATELET COUNT 416 x10^3/uL (140-400); RED BLOOD COUNT 4.11 x10^6/uL (4.30-5.70); RED CELL DISTRIBUTION WIDTH 11.9 % (11.5-14.5); WHITE BLOOD COUNT 11.3 x10^3/uL (4.0-11.0)
[2017-03-07 12:04] LABS: CREATININE 0.9 mg/dL (0.7-1.3); GFR 92.1; POTASSIUM 4.3 mmol/L (3.5-5.1)
--- NOTE | 2017-03-07 13:17 | PDOC ---
Infectious Disease Note Subjective Subjective s/p I and D of right foot earlier today Comfortable, denies pain Appetite alright ROS ROS GEN: Denies fevers, chills, sweats CV: Denies chest pain RESP: Denies shortness of air, cough GI: Denies n/v/d NEURO: Denies confusion, dizziness Vital Sign Vital Signs Vital Signs Date Time Temp Pulse Resp B/P (MAP) Pulse Ox O2 Delivery O2 Flow Rate FiO2 03/07/17 11:43 98.1 81 18 111/61 (78) 96 Room Air 98.1 Physical Exam PHYSICAL EXAM GENERAL: Propped up in bed, eating HEENT: PERRL, OC/OP pink LUNGS: Clear HEART: S1S2, no gallop, no murmur ABD: Soft, NT, BS present EXT: No edema, no cyanosis. Post-op dressing right foot, dry MEAL MILLER: Alert, oriented x 3, no focal neurologic deficit SKIN: No rash IV: ok Labs Lab Laboratory Tests Test 03/06/17 17:33 03/06/17 20:56 03/07/17 07:22 03/07/17 10:29 Glucose (Fingerstick) 187 mg/dL (70-99) 196 mg/dL (70-99) 204 mg/dL (70-99) 209 mg/dL (70-99) Test 03/07/17 11:17 03/07/17 11:35 White Blood Count 11.3 x10^3/uL (4.0-11.0) Red Blood Count 4.11 x10^6/uL (4.30-5.70) Hemoglobin 11.5 g/dL (13.0-17.5) Hematocrit 35.0 % (39.0-53.0) Mean Corpuscular Volume 85 fL (79-100) Mean Corpuscular Hemoglobin 28 pg (25-35) Mean Corpuscular Hemoglobin Concent 33 g/dL (31-37) Red Cell Distribution Width 11.9 % (11.5-14.5) Platelet Count 416 x10^3/uL (140-400) Neutrophils (%) (Auto) 85 % (31-73) Lymphocytes (%) (Auto) 8 % (24-48) Monocytes (%) (Auto) 5 % (0-9) Eosinophils (%) (Auto) 1 % (0-3) Basophils (%) (Auto) 1 % (0-3) Neutrophils # (Auto) 9.7 x10^3uL (1.8-7.7) Lymphocytes # (Auto) 0.8 x10^3/uL (1.0-4.8) Monocytes # (Auto) 0.6 x10^3/uL (0.0-1.1) Eosinophils # (Auto) 0.1 x10^3/uL (0.0-0.7) Basophils # (Auto) 0.1 x10^3/uL (0.0-0.2) Sodium Level 137 mmol/L (136-145) Potassium Level 4.3 mmol/L (3.5-5.1) Chloride Level 104 mmol/L (98-107) Carbon Dioxide Level 21 mmol/L (21-32) Anion Gap 12 (6-14) Blood Urea Nitrogen 13 mg/dL (8-26) Creatinine 0.9 mg/dL (0.7-1.3) Estimated GFR (Cockcroft-Gault) 92.1 Glucose Level 219 mg/dL (70-99) Calcium Level 8.0 mg/dL (8.5-10.1) Glucose (Fingerstick) 226 mg/dL (70-99) Micro BLOOD CULTURE Preliminary NO GROWTH AFTER 1 DAY Right foot ANAEROBIC-AEROBIC CULTURE PENDING ANAEROBIC RES 1 PENDING AEROBIC CULT Preliminary Preliminary report AEROBIC RES 1 Preliminary Beta hemolytic Streptococcus, group B Heavy growth GRAM STAIN Final WBCS MANY GRAM POSITIVE COCCI MANY MODERATE TINY GRAM NEGATIVE RODS, AND MODERATE TINY GRAM POSITIVE COCCI, SUGGESTIVE OF ANAEROBES. Objective Assessment Infected diabetic ulcer with abscess of right foot. -s/p I and D, by Dr. Hearn, vascular 5/ -swab GS: GPC and anaerobes. cx: group B strep, so far 5/5 Cellulitis of right foot Diabetes Leukocytosis. s/p steroids 5/6 Plan Plan of Care vanc and Rocephin MRI right foot pending MRSA PCR pending off load f/u cultures/am labs Dose Flagyl D/w Attending Co-Sign Attending Co-Sign The patient was seen and interviewed as well as examined at the bedside. The chart was reviewed. The case was discussed. Agree with the plan of care. SHERITA SAINZ APRN March 07, 2017 13:17 LAUREN MALIK MD March 07, 2017 13:29
[2017-03-07] MEDS: metroNIDAZOLE 500 MG TABLET PO SCH ×2 (14:02→21:46)
[2017-03-07 14:52] LABS: % EOS 1 % (0-5)
[2017-03-07 14:53] LABS: PLT ESTIMATE ADEQUATE (ADEQUATE); TOXIC GRANULATION SLIGHT
--- NOTE | 2017-03-07 15:12 | OP ---
DATE OF SURGERY: 03/07/2017 PREOPERATIVE DIAGNOSES: 1. Right foot cellulitis. 2. Right foot abscess and ulcer. 3. Diabetes. 4. Peripheral neuropathy. POSTOPERATIVE DIAGNOSES: 1. Right foot cellulitis. 2. Right foot abscess and ulcer. 3. Diabetes. 4. Peripheral neuropathy. PROCEDURE: Right foot excisional debridement including skin, subcutaneous tissue and tendons. SURGEON: Felice Frost MD ANESTHESIA: General. INDICATIONS: The patient is a 41-year-old male with diabetes and peripheral neuropathy who has a large ulcer on the lateral aspect of his right foot with undermining and obvious purulent drainage. He has erythema extending proximally. He presents for foot debridement with possible toe amputation. FINDINGS: There is a deep ulcer in the right foot. Cultures were obtained. This was debrided of all necrotic tissue down to viable tissue. This did not appear to extend into either the bone or joint of the fifth metatarsal shaft or toe. Following debridement, the wound measured 6 cm x 2.5 cm x 1 cm undermining and 1.5 cm depth. DESCRIPTION OF PROCEDURE: The patient was taken to the operating room and placed upon the hospital bed. He underwent a general anesthetic. His right foot and ankle were prepped and draped in normal sterile fashion. Forceps and scissors were used to sharply excise the necrotic tissue at the ulcer edges. There was severe undermining. Cultures were obtained. The skin on the lateral aspect of the foot was opened to unroof the area of undermining. The necrotic adjacent tissue was then sharply excised down to viable underlying tissue. This included skin, subcutaneous tissue and some plantar tendons. There did not appear to be involvement of either the bone or joints at this time. Pulsavac hydrometeorology teacher was utilized to irrigate the wound using 3 liters of saline. Electrocautery used for hemostasis. A saline moistened Aquacel Ag was placed into the wound followed by 4 x 4s, Kerlix and Jorje wrap. ESTIMATED BLOOD LOSS: 5 mL. SPECIMEN: None except for cultures. FELICE FROST MD DR: JAMES/ayaz JOB#: [id number] / [id number] ecc BEVERLY ACOSTA MD, GLENN MD
[2017-03-07 15:26] VITALS: BP 123/55
--- NOTE | 2017-03-07 18:21 | RAD ---
PROCEDURE MR of the right foot with and without contrast HISTORY Open ulcer at the lateral right foot at the level of the 5th toe through the midfoot for 4-5 months. TECHNIQUE Routine multiplanar sequences before and after intravenous contrast COMPARISON FINDINGS Marrow edema within the distal shaft and head of the 5th metatarsal, and within all 5th toe phalanges. However, no corresponding loss of fatty signal on T1 weighted images, and this is likely therefore just reactive edema, rather than osteomyelitis. No aggressive bone destruction identified. No evidence of acute fracture. Mild soft tissue edema involving both deep and superficial aspects of the visualized foot. No organized fluid collection or drainable abscess. Note there is some relative diminished enhancement at the lateral plantar foot and 5th toe, could represent some early tissue necrosis or mild phlegmonous tissue. Tendons are intact. No evidence of significant tendon sheath fluid. Lisfranc ligament complex and tarsometatarsal alignment are intact. There is mild bone marrow edema involving the navicular with mild enhancement., But no aggressive destruction or evidence of a macrofracture. There is no evidence of a significant joint effusion. IMPRESSION 1. Generalized soft tissue edema or cellulitis throughout the foot. 2. Marrow edema at the distal 5th metacarpal and the proximal, middle and distal phalanges. No aggressive bone destruction or fatty marrow replacement. Therefore, reactive edema is favored rather than acute osteomyelitis at this time. 3. No evidence of drainable abscess. 4. Mildly diminished enhancement at the lateral plantar foot and 5th toe, uncertain significance but could indicate early tissue necrosis or mild phlegmon. Electronically signed by: Checo Serrato MD (March 07, 2017 18:19:19)
[2017-03-07] MEDS: HYDROcodone/APAP 7.5/325MG 1 TAB TABLET PO PRN (19:21)
[2017-03-07 19:58] VITALS: BP 147/71
--- NOTE | 2017-03-07 20:41 | CONS ---
DATE OF CONSULTATION: 03/07/2017 CHIEF COMPLAINT: Right foot infection. HISTORY OF PRESENT ILLNESS: The patient is a 41-year-old male with diabetes and peripheral neuropathy who has had recurrent ulcers on both feet, most recently on his right. He has been followed for a right foot ulcer, intermittently, through the wound care center. He was seen last year and then most recently. He states that he had noticed a worsening wound on his foot for the last few weeks, but eventually came to the wound care center yesterday. He was admitted from the wound care center for severe redness and a deep ulcer. He denies any fevers or chills. PAST MEDICAL HISTORY: Diabetes. PAST SURGICAL HISTORY: Tonsillectomy. CURRENT MEDICATIONS: Vancomycin, lisinopril, insulin, ceftriaxone, fentanyl and Zofran. ALLERGIES: ADVERSE REACTION TO CODEINE. SOCIAL HISTORY: He is . He lives with his . 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 He denies any smoking or alcohol use. FAMILY HISTORY: Noncontributory. REVIEW OF SYSTEMS: No recent fevers, chills, chest pain, or shortness of breath. No unilateral weakness, numbness, loss of vision, speech changes, or other TIA or stroke type symptoms. He has chronic decreased sensation in both feet consistent with peripheral neuropathy. No abdominal or back pain. No lower extremity discomfort except for some recent discomfort associated with this ulcer. PHYSICAL EXAMINATION: GENERAL: This is a well-developed male, in no acute distress. VITAL SIGNS: Temperature 97.7, pulse 82, blood pressure 146/80, respirations 18. NECK: Supple, no lymphadenopathy. CARDIOVASCULAR: Regular rate and rhythm. ABDOMEN: Soft, nontender, nondistended, no palpable masses. EXTREMITIES: He has palpable radial, popliteal, and pedal pulses bilaterally. There are no areas of skin breakdown on the left lower leg or foot. He does have a callus on his plantar left foot. On his right foot, there is an open ulcer over the lateral and plantar aspect of the right fifth metatarsophalangeal joint. This extends deep and there is purulent drainage from the deep area of the wound. There is erythema that extends up around the wound as well as extending proximally of the foot. LABORATORY DATA: Significant for white blood cell 14.6, hemoglobin 13.7, platelet count of 483. Sodium 134, potassium 4.2, BUN 15, creatinine 0.7, glucose 269. IMAGING DATA: Foot x-ray showed a soft tissue irregularity around the fifth metatarsal head consistent with his overlying ulcer. No obvious acute bony abnormality was identified. MRI was performed, but no results available. IMPRESSION: 1. Right lateral foot ulcer as described above with purulent drainage and significant erythema. 2. Diabetes. 3. Peripheral neuropathy. RECOMMENDATIONS: 1. I discussed the severity of this foot wound. He has been started on IV antibiotics, but would likely benefit from aggressive debridement. Depending on the depth of the wound and involvement of adjacent bony structures and/or joint, this may require a fifth toe ray amputation. I discussed the options of continued observation, antibiotics versus surgical debridement, and possible amputation. Risks and potential benefits of each option were outlined carefully. 2. After discussing risks and benefits, he has elected to proceed with right foot debridement and possible toe amputation. 3. I discussed the importance of careful foot protection including good footwear at all times. He is going to be at added risk for a foot wound breakdown due to his diabetes as well as peripheral neuropathy the rest of his life. TAMELA FROST MD DR: JAMES/ayaz JOB#: [id number] / [id number] ecc BEVERLY ACOSTA MD, LUI MARQUEZ MD, MD
[2017-03-07] MEDS: INSULIN DETEMIR 300 UNITS/3 ML INSULN.PEN. SQ SCH (21:52)
[2017-03-07 23:52] VITALS: BP 110/61
[2017-03-08 03:32] VITALS: BP 114/68
[2017-03-08 07:00] VITALS: BP 128/73
[2017-03-08] MEDS: HYDROcodone/APAP 7.5/325MG 1 TAB TABLET PO PRN ×4 (07:29→20:15)
[2017-03-08] MEDS: metroNIDAZOLE 500 MG TABLET PO SCH ×2 (08:12→20:14)
[2017-03-08] MEDS: LISINOPRIL 10 MG TABLET PO SCH (08:12)
[2017-03-08] MEDS: INSULIN ASPART 300 UNITS/3 ML INSULN.PEN SQ SCH ×6 (08:15→17:47)
[2017-03-08] MEDS: DOCUSATE SODIUM 100 MG CAPSULE. PO SCH (09:00)
--- NOTE | 2017-03-08 09:13 | PDOC ---
Infectious Disease Note Subjective Subjective Slept well Pain controlled ROS ROS GEN: Denies fevers, chills, sweats HEENT: Denies sore throat CV: Denies chest pain RESP: Denies shortness of air, cough GI: Denies n/v/d NEURO: Denies confusion, dizziness MSK: Denies weakness, joint pain/swelling Vital Sign Vital Signs Vital Signs Date Time Temp Pulse Resp B/P (MAP) Pulse Ox O2 Delivery O2 Flow Rate FiO2 03/08/17 08:12 69 128/73 03/08/17 08:00 Room Air 03/08/17 07:29 98 03/08/17 07:00 97.5 20 97.5 Physical Exam PHYSICAL EXAM GENERAL: Propped up in bed, relaxed appearance HEENT: PERRL, OC/OP pink LUNGS: Clear HEART: S1S2, no gallop, no murmur ABD: Soft, NT, BS present EXT: No edema, no cyanosis. Post-op dressing right foot, dry, wiggles toes PROPELLER TESTER: Alert, oriented x 3, no focal neurologic deficit SKIN: No rash IV: ok Labs Lab Laboratory Tests Test 03/07/17 10:29 03/07/17 11:17 03/07/17 11:35 03/07/17 16:46 Glucose (Fingerstick) 209 mg/dL (70-99) 226 mg/dL (70-99) 344 mg/dL (70-99) White Blood Count 11.3 x10^3/uL (4.0-11.0) Red Blood Count 4.11 x10^6/uL (4.30-5.70) Hemoglobin 11.5 g/dL (13.0-17.5) Hematocrit 35.0 % (39.0-53.0) Mean Corpuscular Volume 85 fL (79-100) Mean Corpuscular Hemoglobin 28 pg (25-35) Mean Corpuscular Hemoglobin Concent 33 g/dL (31-37) Red Cell Distribution Width 11.9 % (11.5-14.5) Platelet Count 416 x10^3/uL (140-400) Neutrophils (%) (Auto) 85 % (31-73) Lymphocytes (%) (Auto) 8 % (24-48) Monocytes (%) (Auto) 5 % (0-9) Eosinophils (%) (Auto) 1 % (0-3) Basophils (%) (Auto) 1 % (0-3) Neutrophils # (Auto) 9.7 x10^3uL (1.8-7.7) Lymphocytes # (Auto) 0.8 x10^3/uL (1.0-4.8) Monocytes # (Auto) 0.6 x10^3/uL (0.0-1.1) Eosinophils # (Auto) 0.1 x10^3/uL (0.0-0.7) Basophils # (Auto) 0.1 x10^3/uL (0.0-0.2) Segmented Neutrophils % 77 % (35-66) Band Neutrophils % 6 % (0-9) Lymphocytes % 13 % (24-48) Monocytes % 3 % (0-10) Eosinophils % 1 % (0-5) Toxic Granulation Slight Platelet Estimate Adequate (ADEQUATE) Sodium Level 137 mmol/L (136-145) Potassium Level 4.3 mmol/L (3.5-5.1) Chloride Level 104 mmol/L (98-107) Carbon Dioxide Level 21 mmol/L (21-32) Anion Gap 12 (6-14) Blood Urea Nitrogen 13 mg/dL (8-26) Creatinine 0.9 mg/dL (0.7-1.3) Estimated GFR (Cockcroft-Gault) 92.1 Glucose Level 219 mg/dL (70-99) Hemoglobin A1c 11.2 % (4.8-5.6) Calcium Level 8.0 mg/dL (8.5-10.1) Test 03/07/17 17:00 03/07/17 20:30 03/08/17 07:50 Vancomycin Level Trough 21.4 mcg/mL (10.0-20.0) Vancomycin Last Dose Date 03/07/17 Vancomycin Last Dose Time 0930 Glucose (Fingerstick) 367 mg/dL (70-99) 223 mg/dL (70-99) IMPRESSION 1. Generalized soft tissue edema or cellulitis throughout the foot. 2. Marrow edema at the distal 5th metacarpal and the proximal, middle and distal phalanges. No aggressive bone destruction or fatty marrow replacement. Therefore, reactive edema is favored rather than acute osteomyelitis at this time. 3. No evidence of drainable abscess. 4. Mildly diminished enhancement at the lateral plantar foot and 5th toe, uncertain significance but could indicate early tissue necrosis or mild phlegmon. Micro BLOOD CULTURE Preliminary NO GROWTH AFTER 1 DAY Right foot ANAEROBIC-AEROBIC CULTURE PENDING ANAEROBIC RES 1 PENDING AEROBIC CULT Preliminary Preliminary report AEROBIC RES 1 Preliminary Beta hemolytic Streptococcus, group B Heavy growth GRAM STAIN Final WBCS MANY GRAM POSITIVE COCCI MANY MODERATE TINY GRAM NEGATIVE RODS, AND MODERATE TINY GRAM POSITIVE COCCI, SUGGESTIVE OF ANAEROBES. Objective Assessment Infected diabetic ulcer with abscess of right foot. -s/p I and D, by Dr. Hearn, vascular 03/07 -swab GS: GPC and anaerobes. cx: group B strep, so far 03/06 Cellulitis of right foot Diabetes Leukocytosis. s/p steroids /6 Plan Plan of Care D/c Vanc Cont Rocephin and Flagyl vanc trough 21.4 MRSA PCR neg off load f/u cultures/ labs Attending Co-Sign Attending Co-Sign The patient was seen and interviewed as well as examined at the bedside. The chart was reviewed. The case was discussed. Agree with the plan of care. SHERITA SAINZ APRN March 08, 2017 09:13 LAUREN MALIK MD March 08, 2017 14:20
[2017-03-08] MEDS: VANCOMYCIN 1.5 GM in IV NORMAL SALINE 500ML BAG 500 ML IV SCH (09:47)
[2017-03-08 11:00] VITALS: BP 124/63
--- NOTE | 2017-03-08 12:38 | PDOC ---
SURGICAL PROGRESS NOTE Subjective He is without new complaints. MRI did not show definitive evidence of Osteo. Vital Signs Vital Signs Date Time Temp Pulse Resp B/P (MAP) Pulse Ox O2 Delivery O2 Flow Rate FiO2 03/08/17 12:12 98 Room Air 03/08/17 11:00 97.7 75 20 124/63 (83) 97.7 General: Alert, No acute distress Heart: Regular rate Extremities: Other (Left foot erythema improved, wound clean, debridement small amount more, dressing reapplied) Problem List Problems Medical Problems: (1) Cellulitis Status: Acute (2) Type 2 diabetes mellitus with foot ulcer Status: Acute Assessment/Plan Right foot abscess s/p debridement DM Peripheral neuropathy Heel touch weight bearing only for transfers and very few steps. Will have Wound Vac applied to the right foot tomorrow. [facility]. Problems: TAMELA FROST MD March 08, 2017 12:38
--- NOTE | 2017-03-08 13:21 | PDOC ---
PROGRESS NOTES Chief Complaint Chief Complaint acute on chronic wound to lateral foot near 5th metatarsal,. cellulitis, concern for osteomyelitils, tachycardia, leukocytosis, Sepsis DM 2 hgba1c pending Diarrhea from metformin History of Present Illness History of Present Illness post I and D on Thursday and wound looks good BS running high though CLaims in distant past his regimen was 20 TID with meals and maybe 30-40 qhs ( he does not clearly recall) NO fevers, WBC 11 ESR 99 Does not want his home metformin, causes him diarrhea PLAn: INc levemir to 20 from 12. Inc ovolog to 10 TID Hgba1c pending Might need to further inc insulin regimen pending BS Antibiotics per ID Dw pt and RN Vitals Vitals Vital Signs Date Time Temp Pulse Resp B/P (MAP) Pulse Ox O2 Delivery O2 Flow Rate FiO2 03/08/17 12:12 98 Room Air 03/08/17 11:00 97.7 75 20 124/63 (83) 97.7 Physical Exam General: Alert, No acute distress Heart: Regular rate Abdomen: Normal bowel sounds, Soft Extremities: Other (Left foot erythema improved, wound clean, debridement small amount more, dressing reapplied) Skin: Other (ulceration and breakdown with some light bleeding from right lateral foot) Labs LABS Laboratory Tests Test 03/07/17 16:46 03/07/17 17:00 03/07/17 20:30 03/08/17 07:50 Glucose (Fingerstick) 344 mg/dL (70-99) 367 mg/dL (70-99) 223 mg/dL (70-99) Vancomycin Level Trough 21.4 mcg/mL (10.0-20.0) Vancomycin Last Dose Date 03/07/17 Vancomycin Last Dose Time 0930 Test 03/08/17 12:09 Glucose (Fingerstick) 252 mg/dL (70-99) Review of Systems Review of Systems no CP, soa, n/v/d Assessment and Plan Assessmemt and Plan Problems Medical Problems: (1) Cellulitis Status: Acute (2) Type 2 diabetes mellitus with foot ulcer Status: Acute Problems: Comment Review of Relevant I have reviewed the following items gabrielle (where applicable) has been applied. Labs Laboratory Tests Test 03/06/17 17:20 03/06/17 17:33 03/06/17 20:56 03/07/17 07:22 Nasal Screen MRSA (PCR) Negative (Negative) Glucose (Fingerstick) 187 mg/dL (70-99) 196 mg/dL (70-99) 204 mg/dL (70-99) Test 03/07/17 10:29 03/07/17 11:17 03/07/17 11:35 03/07/17 16:46 Glucose (Fingerstick) 209 mg/dL (70-99) 226 mg/dL (70-99) 344 mg/dL (70-99) White Blood Count 11.3 x10^3/uL (4.0-11.0) Red Blood Count 4.11 x10^6/uL (4.30-5.70) Hemoglobin 11.5 g/dL (13.0-17.5) Hematocrit 35.0 % (39.0-53.0) Mean Corpuscular Volume 85 fL (79-100) Mean Corpuscular Hemoglobin 28 pg (25-35) Mean Corpuscular Hemoglobin Concent 33 g/dL (31-37) Red Cell Distribution Width 11.9 % (11.5-14.5) Platelet Count 416 x10^3/uL (140-400) Neutrophils (%) (Auto) 85 % (31-73) Lymphocytes (%) (Auto) 8 % (24-48) Monocytes (%) (Auto) 5 % (0-9) Eosinophils (%) (Auto) 1 % (0-3) Basophils (%) (Auto) 1 % (0-3) Neutrophils # (Auto) 9.7 x10^3uL (1.8-7.7) Lymphocytes # (Auto) 0.8 x10^3/uL (1.0-4.8) Monocytes # (Auto) 0.6 x10^3/uL (0.0-1.1) Eosinophils # (Auto) 0.1 x10^3/uL (0.0-0.7) Basophils # (Auto) 0.1 x10^3/uL (0.0-0.2) Segmented Neutrophils % 77 % (35-66) Band Neutrophils % 6 % (0-9) Lymphocytes % 13 % (24-48) Monocytes % 3 % (0-10) Eosinophils % 1 % (0-5) Toxic Granulation Slight Platelet Estimate Adequate (ADEQUATE) Sodium Level 137 mmol/L (136-145) Potassium Level 4.3 mmol/L (3.5-5.1) Chloride Level 104 mmol/L (98-107) Carbon Dioxide Level 21 mmol/L (21-32) Anion Gap 12 (6-14) Blood Urea Nitrogen 13 mg/dL (8-26) Creatinine 0.9 mg/dL (0.7-1.3) Estimated GFR (Cockcroft-Gault) 92.1 Glucose Level 219 mg/dL (70-99) Hemoglobin A1c 11.2 % (4.8-5.6) Calcium Level 8.0 mg/dL (8.5-10.1) Test 03/07/17 17:00 03/07/17 20:30 03/08/17 07:50 03/08/17 12:09 Vancomycin Level Trough 21.4 mcg/mL (10.0-20.0) Vancomycin Last Dose Date 03/07/17 Vancomycin Last Dose Time 0930 Glucose (Fingerstick) 367 mg/dL (70-99) 223 mg/dL (70-99) 252 mg/dL (70-99) Laboratory Tests Test 03/07/17 16:46 03/07/17 17:00 03/07/17 20:30 03/08/17 07:50 Glucose (Fingerstick) 344 mg/dL (70-99) 367 mg/dL (70-99) 223 mg/dL (70-99) Vancomycin Level Trough 21.4 mcg/mL (10.0-20.0) Vancomycin Last Dose Date 03/07/17 Vancomycin Last Dose Time 0930 Test 03/08/17 12:09 Glucose (Fingerstick) 252 mg/dL (70-99) Microbiology 03/06/17 Blood Culture - Preliminary, Resulted NO GROWTH AFTER 2 DAYS 03/07/17 Gram Stain - Final, Complete Medications Current Medications Vancomycin HCl (Vanco Per Pharmacy) 1 each 1X ONCE MC Last administered on 03/06 10:15; Start 03/06/17 at 10:15; Stop 03/06/17 at 11:48; Status DC Vancomycin HCl 2 gm/Sodium Chloride 500 ml @ 250 mls/hr 1X ONCE IV Last administered on 03/06/17 11:30; Start 03/06/17 at 11:00; Stop 03/06/17 at 12:59; Status DC Sodium Chloride 1,000 ml @ 1,000 mls/hr 1X ONCE IV Last administered on 11:30; Start 03/06/17 at 11:00; Stop 03/06/17 at 11:59; Status DC Ondansetron HCl (Zofran) 4 mg PRN Q8HRS PRN IV NAUSEA/VOMITING; Start 03/06/17 at 11:00; Stop 03/07/17 at 08:24; Status DC Fentanyl Citrate (Fentanyl 2ml Vial) 50 mcg PRN Q2HR PRN IV PAIN Last administered on 03/07/17 08:29; Start 03/06/17 at 11:00; Stop 03/07/17 at 10:59; Status DC Sodium Chloride 1,000 ml @ 125 mls/hr Q8H IV Last administered on 03/07/17 01: 56; Start 03/06/17 at 10:56; Stop 03/07/17 at 10:55; Status DC Acetaminophen (Tylenol) 650 mg PRN Q4HRS PRN PO FEVER; Start 03/06/17 at 11:00; Stop 03/07/17 at 10:59; Status DC Vancomycin HCl 1.5 gm/Sodium Chloride 500 ml @ 250 mls/hr Q8H IV Last administered on 03/07/17 08:30; Start 03/06/17 at 17:30; Stop 03/07/17 at 17:43; Status DC Vancomycin HCl 1 each 1X ONCE MC ; Start 03/07/17 at 17:00; Stop 03/07/17 at 17: 01; Status DC Vancomycin HCl (Vanco Per Pharmacy) 1 each PRN DAILY PRN MC PRN Last administered on 03/07/17 18:05; Start 03/06/17 at 12:30 Ceftriaxone Sodium 1 gm/ Sodium Chloride 50 ml @ 100 mls/hr Q24H IV Last administered on 03/07/17 14:03; Start 03/06/17 at 13:30 Acetaminophen/ Hydrocodone Bitart (Lortab 7.5/325) 1 tab PRN Q4HRS PRN PO PAIN Last administered on 03/08/17 12:12; Start 03/06/17 at 14:00 Insulin Aspart (Novolog) 0-9 UNITS TIDWMEALS SQ Last administered on 03/08/17 12:28; Start 03/06/17 at 17:00 Dextrose (Dextrose 50%-Water Syringe) 12.5 gm PRN Q15MIN PRN IV SEE COMMENTS; Start 03/06/17 at 14:00 Insulin Detemir (Levemir) 12 units QHS SQ Last administered on 03/07/17 21:52; Start 03/06/17 at 21:00; Stop 03/08/17 at 12:42; Status DC Lisinopril (Prinivil) 10 mg 1X ONCE PO Last administered on 03/06/17 14:14; Start 03/06/17 at 14:00; Stop 03/06/17 at 14:01; Status DC Lisinopril (Prinivil) 10 mg DAILY PO Last administered on 03/08/17 08:12; Start 03/07/17 at 09:00 Insulin Aspart (Novolog) 8 units TIDAC SQ Last administered on 03/08/17 12:27; Start 03/06/17 at 16:30; Stop 03/08/17 at 12:42; Status DC Docusate Sodium (Colace) 100 mg DAILY PO ; Start 03/07/17 at 09:00 Polyethylene Glycol (miraLAX PACKET) 17 gm PRN DAILY PRN PO CONSTIPATION; Start 03/06/17 at 15:45 Metformin HCl (Glucophage) 500 mg BIDWMEALS PO ; Start 03/06/17 at 17:00; Stop at 18:15; Status DC Gadobutrol (Gadavist) 10 mmol 1X ONCE IV Last administered on 03/06/17 16:57; Start 03/06/17 at 16:45; Stop 03/06/17 at 16:46; Status DC Ondansetron HCl (Zofran) 4 mg PRN Q6HRS PRN IV NAUSEA/VOMITING; Start 03/07/17 at 08:23; Stop 03/07/17 at 12:27; Status DC Ondansetron HCl (Zofran) 4 mg PRN Q6HRS PRN IV NAUSEA/VOMITING; Start 03/07/17 at 08:45; Stop 03/08/17 at 08:44; Status DC Fentanyl Citrate (Fentanyl 2ml Vial) 25 mcg PRN Q5MIN PRN IV MILD PAIN; Start 03/07/17 at 08:45; Stop 03/07/17 at 18:00; Status DC Fentanyl Citrate (Fentanyl 2ml Vial) 50 mcg PRN Q5MIN PRN IV MODERATE PAIN Last administered on 03/07/17t 10:49; Start 03/07/17 at 08:45; Stop 03/07/17 at 18: 00; Status DC Ringer's Solution 1,000 ml @ 0 mls/hr Q0M IV ; Start 03/07/17 at 08:31; Stop 03/07/17 at 20:30; Status DC Lidocaine HCl 2 ml PRN 1X PRN ID PRIOR TO IV START; Start 03/07/17 at 08:45; Stop 03/07/17 at 18:00; Status DC Prochlorperazine Edisylate (Compazine) 5 mg PACU PRN PRN IV NAUSEA, MRX1; Start 03/07/17 at 08:45; Stop 03/07/17 at 18:00; Status DC Dexamethasone Sodium Phosphate (Decadron) 20 mg STK-MED ONCE .ROUTE ; Start 03/07 at 08:34; Stop 03/07/17 at 08:35; Status DC Propofol 20 ml @ As Directed STK-MED ONCE IV ; Start 03/07/17 at 08:34; Stop 03/07 at 08:35; Status DC Lidocaine HCl (Lidocaine Pf 2% Vial) 5 ml STK-MED ONCE .ROUTE ; Start 03/07/17 at 08:34; Stop 03/07/17 at 08:35; Status DC Fentanyl Citrate (Fentanyl 5ml Vial) 250 mcg STK-MED ONCE .ROUTE ; Start at 08:57; Stop 03/07/17 at 08:58; Status DC Silver Sulfadiazine (Silvadene) 25 lillian STK-MED ONCE TP ; Start 03/07/17 at 09:03 ; Stop 03/07/17 at 09:04; Status DC Lidocaine HCl 30 ml STK-MED ONCE .ROUTE ; Start 03/07/17 at 09:03; Stop 03/07/17 at 09:04; Status DC Sevoflurane (Ultane) 30 ml STK-MED ONCE IH ; Start 03/07/17 at 09:43; Stop at 09:44; Status DC Metronidazole (Flagyl) 500 mg Q12HR PO Last administered on 03/08/17 08:12; Start 03/07/17 at 13:30 Vancomycin HCl 1.5 gm/Sodium Chloride 500 ml @ 250 mls/hr Q12H IV Last administered on 03/08/17 09:47; Start 03/07/17 at 21:00 Vancomycin HCl 1 each 1X ONCE MC ; Start 03/09/17 at 08:30; Stop 03/09/17 at 08: 31 Insulin Aspart (Novolog) 10 units TIDAC SQ ; Start 03/08/17 at 16:30 Insulin Detemir (Levemir) 20 units QHS SQ ; Start 03/08/17 at 21:00 Active Scripts Active Reported Hydrocodone-Apap 5-325 (Hydrocodone Bit/Acetaminophen) 1 Each Tablet 1 Tab PO PRN Q6HRS PRN Vitals/I & O Vital Sign - Last 24 Hours 03/07/17 03/07/17 03/07/17 03/07/17 15:26 19:21 19:58 20:00 Temp 98.4 98.1 98.4 98.1 Pulse 87 80 Resp 18 18 16 B/P (MAP) 123/55 (77) 147/71 (96) Pulse Ox 97 96 O2 Delivery Room Air Room Air Room Air Room Air 03/07/17 03/07/17 03/08/17 03/08/17 20:21 23:52 03:32 07:00 Temp 97.9 97.1 97.5 97.9 97.1 97.5 Pulse 69 68 69 Resp 16 16 16 20 B/P (MAP) 110/61 (77) 114/68 (83) 128/73 (91) Pulse Ox 97 98 99 O2 Delivery Room Air Room Air Room Air 03/08/17 03/08/17 03/08/17 03/08/17 07:29 08:00 08:12 10:55 Pulse 69 B/P (MAP) 128/73 Pulse Ox 98 98 O2 Delivery Room Air Room Air Room Air 03/08/17 03/08/17 11:00 12:12 Temp 97.7 97.7 Pulse 75 Resp 20 B/P (MAP) 124/63 (83) Pulse Ox 98 98 O2 Delivery Room Air Room Air Intake and Output 03/07/17 03/07/17 03/08/17 15:00 23:00 07:00 Intake Total 1220 ml Balance 1220 ml FABIO MENCHACA MD March 08, 2017 13:21
[2017-03-08 15:00] VITALS: BP 125/68
[2017-03-08 19:51] VITALS: BP 112/61
[2017-03-08] MEDS: INSULIN DETEMIR 300 UNITS/3 ML INSULN.PEN. SQ SCH (20:21)
[2017-03-08 23:27] VITALS: BP 111/56
[2017-03-09 03:11] VITALS: BP 121/71
[2017-03-09 07:05] VITALS: BP 143/83
[2017-03-09] MEDS: DOCUSATE SODIUM 100 MG CAPSULE. PO SCH (08:12)
[2017-03-09] MEDS: metroNIDAZOLE 500 MG TABLET PO SCH ×2 (08:13→21:15)
[2017-03-09] MEDS: HYDROcodone/APAP 7.5/325MG 1 TAB TABLET PO PRN ×4 (08:13→21:15)
[2017-03-09] MEDS: LISINOPRIL 10 MG TABLET PO SCH (08:13)
[2017-03-09] MEDS: INSULIN ASPART 300 UNITS/3 ML INSULN.PEN SQ SCH ×6 (08:17→16:48)
--- NOTE | 2017-03-09 08:44 | PDOC ---
Infectious Disease Note Subjective Subjective Slept well Pain controlled Doing well Appetite ok ROS ROS GEN: Denies fevers, chills, sweats HEENT: Denies blurred vision, sore throat CV: Denies chest pain RESP: Denies shortness of air, cough GI: Denies n/v/d NEURO: Denies confusion, dizziness MSK: Denies weakness Vital Sign Vital Signs Vital Signs Date Time Temp Pulse Resp B/P (MAP) Pulse Ox O2 Delivery O2 Flow Rate FiO2 03/09/17 08:13 74 143/83 03/09/17 08:13 14 98 Room Air 03/09/17 07:05 97.9 97.9 Physical Exam PHYSICAL EXAM GENERAL: NAD, Alert HEENT: PERRL, OC/OP - clear NECK: Supple, no JVD, no LN LUNGS: Clear HEART: S1S2, no gallop, no murmur ABD: Soft, NT, no organomegaly, no rebound EXT: No edema, no cyanosis. Wound clean. No erythema/pus/warmth/odor. mild tender within wound. No bone CHIEF CONCIERGE: Alert, oriented x 3, no focal neurologic deficit SKIN: No rash IV: ok Labs Lab Laboratory Tests Test 03/08/17 12:09 03/08/17 17:12 03/08/17 20:10 03/09/17 07:08 Glucose (Fingerstick) 252 mg/dL (70-99) 237 mg/dL (70-99) 300 mg/dL (70-99) 238 mg/dL (70-99) Objective Assessment Infected diabetic ulcer with abscess of right foot. -s/p I and D, by Dr. Gomez, vascular / -swab GS: GPC and anaerobes. cx: group B strep, so far 5/5 Cellulitis of right foot Diabetes Leukocytosis. s/p steroids 5/6 Plan Plan of Care Cont Rocephin for today and then change to Cefpodoxime for 7 days Flagyl for 5 days Ok to d/c f/u wound care LAUREN MALIK MD March 09, 2017 08:44
[2017-03-09 10:45] VITALS: BP 128/69
--- NOTE | 2017-03-09 10:53 | PDOC ---
PROGRESS NOTES Chief Complaint Chief Complaint acute on chronic wound to lateral foot near 5th metatarsal,. cellulitis, concern for osteomyelitils, tachycardia, leukocytosis, Sepsis DM 2 hgba1c pending Diarrhea from metformin History of Present Illness History of Present Illness Pt was lying in bed comfortably with wrapped wound over his right foot. Pt has no acute complaints but states he has some pain in his right foot and would like something to control it. He would like to go home today. Vitals Vitals Vital Signs Date Time Temp Pulse Resp B/P (MAP) Pulse Ox O2 Delivery O2 Flow Rate FiO2 03/09/17 10:08 14 Room Air 03/09/17 08:13 74 143/83 03/09/17 08:13 98 03/09/17 07:05 97.9 97.9 Physical Exam General: Alert, No acute distress Heart: Regular rate, No murmurs Lungs: Clear, Other (no wheezing) Abdomen: Normal bowel sounds, Soft, No tenderness Extremities: Other (Left foot erythema improved, wound clean, debridement small amount more, dressing reapplied) Skin: Other (ulceration and breakdown with some light bleeding from right lateral foot) Labs LABS Laboratory Tests Test 03/08/17 12:09 03/08/17 17:12 03/08/17 20:10 03/09/17 07:08 Glucose (Fingerstick) 252 mg/dL (70-99) 237 mg/dL (70-99) 300 mg/dL (70-99) 238 mg/dL (70-99) Review of Systems Review of Systems Denies Chest pain Denies Fever Denies SOA Denies N/V/D Assessment and Plan Assessmemt and Plan Problems Medical Problems: (1) Cellulitis Status: Acute (2) Type 2 diabetes mellitus with foot ulcer Status: Acute Assessment: Infected diabetic ulcer with abscess of right foot. -s/p I and D, by Dr. Gomez, vascular 03/07 -swab GS: GPC and anaerobes. cx: group B strep, so far 5/ Cellulitis of right foot DM 2 Leukocytosis. s/p steroids 5/6 Plan: Diabetic ulcer improved - able to go home today if ok w/ subspecialists Switch to Vantin 200 mg BID x 7 days - per ID Continue Flagyl 500 mg QID - per ID Start Lortab prn for pain control Continue current DM meds Right foot MRI reviewed Subspecialty input appreciated Follow up w/ PCP Problems: Comment Review of Relevant I have reviewed the following items gabrielle (where applicable) has been applied. Labs Laboratory Tests Test 03/07/17 11:17 03/07/17 11:35 03/07/17 16:46 03/07/17 17:00 White Blood Count 11.3 x10^3/uL (4.0-11.0) Red Blood Count 4.11 x10^6/uL (4.30-5.70) Hemoglobin 11.5 g/dL (13.0-17.5) Hematocrit 35.0 % (39.0-53.0) Mean Corpuscular Volume 85 fL (79-100) Mean Corpuscular Hemoglobin 28 pg (25-35) Mean Corpuscular Hemoglobin Concent 33 g/dL (31-37) Red Cell Distribution Width 11.9 % (11.5-14.5) Platelet Count 416 x10^3/uL (140-400) Neutrophils (%) (Auto) 85 % (31-73) Lymphocytes (%) (Auto) 8 % (24-48) Monocytes (%) (Auto) 5 % (0-9) Eosinophils (%) (Auto) 1 % (0-3) Basophils (%) (Auto) 1 % (0-3) Neutrophils # (Auto) 9.7 x10^3uL (1.8-7.7) Lymphocytes # (Auto) 0.8 x10^3/uL (1.0-4.8) Monocytes # (Auto) 0.6 x10^3/uL (0.0-1.1) Eosinophils # (Auto) 0.1 x10^3/uL (0.0-0.7) Basophils # (Auto) 0.1 x10^3/uL (0.0-0.2) Segmented Neutrophils % 77 % (35-66) Band Neutrophils % 6 % (0-9) Lymphocytes % 13 % (24-48) Monocytes % 3 % (0-10) Eosinophils % 1 % (0-5) Toxic Granulation Slight Platelet Estimate Adequate (ADEQUATE) Sodium Level 137 mmol/L (136-145) Potassium Level 4.3 mmol/L (3.5-5.1) Chloride Level 104 mmol/L (98-107) Carbon Dioxide Level 21 mmol/L (21-32) Anion Gap 12 (6-14) Blood Urea Nitrogen 13 mg/dL (8-26) Creatinine 0.9 mg/dL (0.7-1.3) Estimated GFR (Cockcroft-Gault) 92.1 Glucose Level 219 mg/dL (70-99) Hemoglobin A1c 11.2 % (4.8-5.6) Calcium Level 8.0 mg/dL (8.5-10.1) Glucose (Fingerstick) 226 mg/dL (70-99) 344 mg/dL (70-99) Vancomycin Level Trough 21.4 mcg/mL (10.0-20.0) Vancomycin Last Dose Date 03/07/17 Vancomycin Last Dose Time 0930 Test 03/07/17 20:30 03/08/17 07:50 03/08/17 12:09 03/08/17 17:12 Glucose (Fingerstick) 367 mg/dL (70-99) 223 mg/dL (70-99) 252 mg/dL (70-99) 237 mg/dL (70-99) Test 03/08/17 20:10 03/09/17 07:08 Glucose (Fingerstick) 300 mg/dL (70-99) 238 mg/dL (70-99) Laboratory Tests Test 03/08/17 12:09 03/08/17 17:12 03/08/17 20:10 03/09/17 07:08 Glucose (Fingerstick) 252 mg/dL (70-99) 237 mg/dL (70-99) 300 mg/dL (70-99) 238 mg/dL (70-99) Microbiology 03/06/17 Blood Culture - Preliminary, Resulted NO GROWTH AFTER 3 DAYS 03/07/17 Anaerobic/Aerobic Culture, Resulted Pending 03/07/17 Anaerobic Culture Result 1 (SCAR), Resulted Pending 03/07/17 Aerobic Culture - Preliminary, Resulted 03/07/17 Aerobic Culture Result 1 (SCAR) - Preliminary, Resulted Medications Current Medications Vancomycin HCl (Vanco Per Pharmacy) 1 each 1X ONCE MC Last administered on 03/06 10:15; Start 03/06/17 at 10:15; Stop 03/06/17 at 11:48; Status DC Vancomycin HCl 2 gm/Sodium Chloride 500 ml @ 250 mls/hr 1X ONCE IV Last administered on 03/06/17 11:30; Start 03/06/17 at 11:00; Stop 03/06/17 at 12:59; Status DC Sodium Chloride 1,000 ml @ 1,000 mls/hr 1X ONCE IV Last administered on 11:30; Start 03/06/17 at 11:00; Stop 03/06/17 at 11:59; Status DC Ondansetron HCl (Zofran) 4 mg PRN Q8HRS PRN IV NAUSEA/VOMITING; Start 03/06/17 at 11:00; Stop 03/07/17 at 08:24; Status DC Fentanyl Citrate (Fentanyl 2ml Vial) 50 mcg PRN Q2HR PRN IV PAIN Last administered on 03/07/17 08:29; Start 03/06/17 at 11:00; Stop 03/07/17 at 10:59; Status DC Sodium Chloride 1,000 ml @ 125 mls/hr Q8H IV Last administered on 03/07/17 01: 56; Start 03/06/17 at 10:56; Stop 03/07/17 at 10:55; Status DC Acetaminophen (Tylenol) 650 mg PRN Q4HRS PRN PO FEVER; Start 03/06/17 at 11:00; Stop 03/07/17 at 10:59; Status DC Vancomycin HCl 1.5 gm/Sodium Chloride 500 ml @ 250 mls/hr Q8H IV Last administered on 03/07/17 08:30; Start 03/06/17 at 17:30; Stop 03/07/17 at 17:43; Status DC Vancomycin HCl 1 each 1X ONCE MC ; Start 03/07/17 at 17:00; Stop 03/07/17 at 17: 01; Status DC Vancomycin HCl (Vanco Per Pharmacy) 1 each PRN DAILY PRN MC PRN Last administered on 03/07/17 18:05; Start 03/06/17 at 12:30; Stop 03/08/17 at 14:20; Status DC Ceftriaxone Sodium 1 gm/ Sodium Chloride 50 ml @ 100 mls/hr Q24H IV Last administered on 03/08/17 16:08; Start 03/06/17 at 13:30; Stop 03/09/17 at 08:44; Status DC Acetaminophen/ Hydrocodone Bitart (Lortab 7.5/325) 1 tab PRN Q4HRS PRN PO PAIN Last administered on 03/09/17 08:13; Start 03/06/17 at 14:00 Insulin Aspart (Novolog) 0-9 UNITS TIDWMEALS SQ Last administered on 03/09/17 08:17; Start 03/06/17 at 17:00 Dextrose (Dextrose 50%-Water Syringe) 12.5 gm PRN Q15MIN PRN IV SEE COMMENTS; Start 03/06/17 at 14:00 Insulin Detemir (Levemir) 12 units QHS SQ Last administered on 03/07/17 21:52; Start 03/06/17 at 21:00; Stop 03/08/17 at 12:42; Status DC Lisinopril (Prinivil) 10 mg 1X ONCE PO Last administered on 03/06/17 14:14; Start 03/06/17 at 14:00; Stop 03/06/17 at 14:01; Status DC Lisinopril (Prinivil) 10 mg DAILY PO Last administered on 03/09/17 08:13; Start 03/07/17 at 09:00 Insulin Aspart (Novolog) 8 units TIDAC SQ Last administered on 03/08/17 12:27; Start 03/06/17 at 16:30; Stop 03/08/17 at 12:42; Status DC Docusate Sodium (Colace) 100 mg DAILY PO ; Start 03/07/17 at 09:00 Polyethylene Glycol (miraLAX PACKET) 17 gm PRN DAILY PRN PO CONSTIPATION; Start 03/06/17 at 15:45 Metformin HCl (Glucophage) 500 mg BIDWMEALS PO ; Start 03/06/17 at 17:00; Stop at 18:15; Status DC Gadobutrol (Gadavist) 10 mmol 1X ONCE IV Last administered on 03/06/17 16:57; Start 03/06/17 at 16:45; Stop 03/06/17 at 16:46; Status DC Ondansetron HCl (Zofran) 4 mg PRN Q6HRS PRN IV NAUSEA/VOMITING; Start 03/07/17 at 08:23; Stop 03/07/17 at 12:27; Status DC Ondansetron HCl (Zofran) 4 mg PRN Q6HRS PRN IV NAUSEA/VOMITING; Start 03/07/17 at 08:45; Stop 03/08/17 at 08:44; Status DC Fentanyl Citrate (Fentanyl 2ml Vial) 25 mcg PRN Q5MIN PRN IV MILD PAIN; Start 03/07/17 at 08:45; Stop 03/07/17 at 18:00; Status DC Fentanyl Citrate (Fentanyl 2ml Vial) 50 mcg PRN Q5MIN PRN IV MODERATE PAIN Last administered on 03/07/17t 10:49; Start 03/07/17 at 08:45; Stop 03/07/17 at 18: 00; Status DC Ringer's Solution 1,000 ml @ 0 mls/hr Q0M IV ; Start 03/07/17 at 08:31; Stop 03/07/17 at 20:30; Status DC Lidocaine HCl 2 ml PRN 1X PRN ID PRIOR TO IV START; Start 03/07/17 at 08:45; Stop 03/07/17 at 18:00; Status DC Prochlorperazine Edisylate (Compazine) 5 mg PACU PRN PRN IV NAUSEA, MRX1; Start 03/07/17 at 08:45; Stop 03/07/17 at 18:00; Status DC Dexamethasone Sodium Phosphate (Decadron) 20 mg STK-MED ONCE .ROUTE ; Start 03/07 at 08:34; Stop 03/07/17 at 08:35; Status DC Propofol 20 ml @ As Directed STK-MED ONCE IV ; Start 03/07/17 at 08:34; Stop 03/07 at 08:35; Status DC Lidocaine HCl (Lidocaine Pf 2% Vial) 5 ml STK-MED ONCE .ROUTE ; Start 03/07/17 at 08:34; Stop 03/07/17 at 08:35; Status DC Fentanyl Citrate (Fentanyl 5ml Vial) 250 mcg STK-MED ONCE .ROUTE ; Start at 08:57; Stop 03/07/17 at 08:58; Status DC Silver Sulfadiazine (Silvadene) 25 lillian STK-MED ONCE TP ; Start 03/07/17 at 09:03 ; Stop 03/07/17 at 09:04; Status DC Lidocaine HCl 30 ml STK-MED ONCE .ROUTE ; Start 03/07/17 at 09:03; Stop 03/07/17 at 09:04; Status DC Sevoflurane (Ultane) 30 ml STK-MED ONCE IH ; Start 03/07/17 at 09:43; Stop at 09:44; Status DC Metronidazole (Flagyl) 500 mg Q12HR PO Last administered on 03/09/17 08:13; Start 03/07/17 at 13:30 Vancomycin HCl 1.5 gm/Sodium Chloride 500 ml @ 250 mls/hr Q12H IV Last administered on 03/08/17 09:47; Start 03/07/17 at 21:00; Stop 03/08/17 at 14:20; Status DC Vancomycin HCl 1 each 1X ONCE MC ; Start 03/09/17 at 08:30; Stop 03/09/17 at 08: 30; Status DC Insulin Aspart (Novolog) 10 units TIDAC SQ Last administered on 03/09/17 08:17 ; Start 03/08/17 at 16:30 Insulin Detemir (Levemir) 20 units QHS SQ Last administered on 03/08/17 20:21; Start 03/08/17 at 21:00 Ceftriaxone Sodium 1 gm/ Sodium Chloride 50 ml @ 100 mls/hr ONCE ONCE IV Last administered on 03/09/17 10:04; Start 03/09/17 at 09:00; Stop 03/09/17 at 09: 29; Status DC Cefpodoxime Proxetil (Vantin) 200 mg BID PO ; Start 03/10/17 at 21:00 Active Scripts Active Reported Hydrocodone-Apap 5-325 (Hydrocodone Bit/Acetaminophen) 1 Each Tablet 1 Tab PO PRN Q6HRS PRN Vitals/I & O Vital Sign - Last 24 Hours 03/08/17 03/08/17 03/08/17 03/08/17 11:00 12:12 15:00 16:02 Temp 97.7 97.9 97.7 97.9 Pulse 75 74 Resp 20 20 B/P (MAP) 124/63 (83) 125/68 (87) Pulse Ox 98 98 99 99 O2 Delivery Room Air Room Air Room Air Room Air 03/08/17 03/08/17 03/08/17 03/08/17 17:47 19:51 20:15 23:27 Temp 99.5 97.5 99.5 97.5 Pulse 85 73 Resp 16 18 16 B/P (MAP) 112/61 (78) 111/56 (74) Pulse Ox 99 98 95 O2 Delivery Room Air Room Air Room Air 03/09/17 03/09/17 03/09/17 03/09/17 03:11 07:05 08:00 08:13 Temp 96.6 97.9 96.6 97.9 Pulse 71 74 Resp 16 18 14 B/P (MAP) 121/71 (88) 143/83 (103) Pulse Ox 97 98 98 O2 Delivery Room Air Room Air Room Air Room Air 03/09/17 03/09/17 08:13 10:08 Pulse 74 Resp 14 B/P (MAP) 143/83 O2 Delivery Room Air Intake and Output 03/08/17 03/08/17 03/09/17 15:00 23:00 07:00 Intake Total 480 ml 480 ml Balance 480 ml 480 ml KIMBERLY ALEXANDRE III DO March 09, 2017 10:53
[2017-03-09 14:45] VITALS: BP 131/72
--- NOTE | 2017-03-09 15:13 | PDOC ---
Provider Note Provider Note Vascular open 5tth toe amputation some purulent drainage persists residual forefoot erythema noted wound itself looks clean' 2+ dp pulse Imp Improved PLAN: ABX VAC HBO F/U [facility] SHERIF MUÑIZ MD March 09, 2017 15:13
[2017-03-09 19:05] VITALS: BP_SYST 132; BP_SYST 146; BP_DIAS 71; BP_DIAS 93
[2017-03-09] MEDS: INSULIN DETEMIR 300 UNITS/3 ML INSULN.PEN. SQ SCH (21:20)
--- NOTE | 2017-03-09 22:54 | DS ---
DATE OF DISCHARGE: 03/09/2017 ADMISSION DIAGNOSIS: Diabetic foot wound. DISCHARGE DIAGNOSIS: Postoperative incision and drainage of diabetic foot wound. HOSPITAL COURSE: The patient is a pleasant 41-year-old male presented with a diabetic foot. He was admitted. We started him on IV antibiotics. We consulted Infectious Disease and Orthopedics and he was taken for surgical incision and drainage. Post-procedure, he is doing well. We plan to discharge on p.o. Flagyl and Vantin. DISPOSITION: Home. ACTIVITY: As tolerated. DIET: Low sodium. MEDICATIONS: Please see the MRAD. TOTAL TIME: 32 minutes. NIAL Aleks ALEXANDRE DO DR: ABDELRAHMAN/ayaz JOB#: [id number] / [id number]
[2017-03-09 23:05] VITALS: BP 138/74
[2017-03-10] MEDS: HYDROcodone/APAP 7.5/325MG 1 TAB TABLET PO PRN ×5 (03:00→21:27)
[2017-03-10 03:05] VITALS: BP 156/87
[2017-03-10 07:00] VITALS: BP 135/76
[2017-03-10] MEDS: metroNIDAZOLE 500 MG TABLET PO SCH ×2 (08:03→21:27)
[2017-03-10] MEDS: LISINOPRIL 10 MG TABLET PO SCH (08:03)
[2017-03-10] MEDS: INSULIN ASPART 300 UNITS/3 ML INSULN.PEN SQ SCH ×6 (08:08→17:22)
[2017-03-10] MEDS: DOCUSATE SODIUM 100 MG CAPSULE. PO SCH (08:13)
--- NOTE | 2017-03-10 08:28 | PDOC ---
Infectious Disease Note Subjective Subjective Slept well Pain controlled Doing well Appetite ok ROS ROS GEN: Denies fevers, chills, sweats HEENT: Denies blurred vision, sore throat CV: Denies chest pain RESP: Denies shortness of air, cough GI: Denies n/v/d NEURO: Denies confusion, dizziness Vital Sign Vital Signs Vital Signs Date Time Temp Pulse Resp B/P (MAP) Pulse Ox O2 Delivery O2 Flow Rate FiO2 03/10/17 08:03 77 135/76 03/10/17 08:03 17 96 Room Air 03/10/17 07:00 98.2 98.2 Physical Exam PHYSICAL EXAM GENERAL: NAD, Alert HEENT: PERRL, OC/OP- clear NECK: Supple, no JVD, no LN LUNGS: Clear HEART: S1S2, no gallop, no murmur ABD: Soft, NT, no organomegaly, no rebound EXT: No edema, no cyanosis. Vac in place. No tracking of erythema INSTRUMENTATION DESIGNER: Alert, oriented x 3, no focal neurologic deficit SKIN: No rash IV: ok Labs Lab Laboratory Tests Test 03/09/17 11:54 03/09/17 16:42 03/09/17 21:14 03/10/17 07:05 Glucose (Fingerstick) 245 mg/dL (70-99) 223 mg/dL (70-99) 293 mg/dL (70-99) 212 mg/dL (70-99) Objective Assessment Infected diabetic ulcer with abscess of right foot. -s/p I and D, by Dr. Gomez, vascular 5/ -swab GS: GPC and anaerobes. cx: group B strep/Viridans, so far 5/5 Cellulitis of right foot Diabetes Leukocytosis. s/p steroids 5/6 Plan Plan of Care Cefpodoxime for 7 days Flagyl for 5 days Ok to d/c f/u wound care LAUREN MALIK MD March 10, 2017 08:28
[2017-03-10] MEDS: CEFPODOXIME PROXETIL 100 MG TABLET. PO SCH ×2 (09:17→21:27)
[2017-03-10 11:00] VITALS: BP 108/72
--- NOTE | 2017-03-10 11:32 | PDOC ---
PROGRESS NOTES Chief Complaint Chief Complaint acute on chronic wound to lateral foot near 5th metatarsal,. cellulitis, concern for osteomyelitils, tachycardia, leukocytosis, Sepsis DM 2 hgba1c pending Diarrhea from metformin History of Present Illness History of Present Illness Pt lying in bed comfortably. No acute complaints. Reported he was not discharged yesterday d/t awaiting wound vac placement. Wishes to go home today. Vitals Vitals Vital Signs Date Time Temp Pulse Resp B/P (MAP) Pulse Ox O2 Delivery O2 Flow Rate FiO2 03/10/17 11:00 98.4 74 18 108/72 (84) 95 Room Air 98.4 Physical Exam General: Alert, No acute distress Heart: Regular rate, No murmurs Lungs: Clear, Other (no wheezing) Abdomen: Normal bowel sounds, Soft, No tenderness Extremities: Other (Left foot erythema improved, wound vac on right foot) Skin: No rashes, No significant lesion, Other (Ulceration and breakdown of diabetic wound on right foot improving) Labs LABS Laboratory Tests Test 03/09/17 11:54 03/09/17 16:42 03/09/17 21:14 03/10/17 07:05 Glucose (Fingerstick) 245 mg/dL (70-99) 223 mg/dL (70-99) 293 mg/dL (70-99) 212 mg/dL (70-99) Review of Systems Review of Systems Denies Chest pain Denies SOA Assessment and Plan Assessmemt and Plan Problems Medical Problems: (1) Cellulitis Status: Acute (2) Type 2 diabetes mellitus with foot ulcer Status: Acute Assessment: Infected diabetic ulcer with abscess of right foot. -s/p I and D, by Dr. Gomez, vascular 03/07 -swab GS: GPC and anaerobes. cx: group B strep, so far 03/06 Cellulitis of right foot DM 2 Leukocytosis. s/p steroids 03/07 Plan: Diabetic ulcer improved - wound vac placed Plan to d/c today Continue po flagyl and vantin per ID Continue Lortab prn for pain control Continue current DM meds Right foot MRI reviewed Subspecialty input appreciated Follow up w/ PCP Problems: Comment Review of Relevant I have reviewed the following items gabrielle (where applicable) has been applied. Labs Laboratory Tests Test 03/08/17 12:09 03/08/17 17:12 03/08/17 20:10 03/09/17 07:08 Glucose (Fingerstick) 252 mg/dL (70-99) 237 mg/dL (70-99) 300 mg/dL (70-99) 238 mg/dL (70-99) Test 03/09/17 11:54 03/09/17 16:42 03/09/17 21:14 03/10/17 07:05 Glucose (Fingerstick) 245 mg/dL (70-99) 223 mg/dL (70-99) 293 mg/dL (70-99) 212 mg/dL (70-99) Laboratory Tests Test 03/09/17 11:54 03/09/17 16:42 03/09/17 21:14 03/10/17 07:05 Glucose (Fingerstick) 245 mg/dL (70-99) 223 mg/dL (70-99) 293 mg/dL (70-99) 212 mg/dL (70-99) Microbiology 03/06/17 Blood Culture - Preliminary, Resulted NO GROWTH AFTER 4 DAYS 03/07/17 Anaerobic/Aerobic Culture, Resulted Pending 03/07/17 Anaerobic Culture Result 1 (SCAR), Resulted Pending 03/07/17 Aerobic Culture - Preliminary, Resulted 03/07/17 Aerobic Culture Result 1 (SCAR) - Preliminary, Resulted Medications Current Medications Vancomycin HCl (Vanco Per Pharmacy) 1 each 1X ONCE MC Last administered on 03/06 10:15; Start 03/06/17 at 10:15; Stop 03/06/17 at 11:48; Status DC Vancomycin HCl 2 gm/Sodium Chloride 500 ml @ 250 mls/hr 1X ONCE IV Last administered on 03/06/17 11:30; Start 03/06/17 at 11:00; Stop 03/06/17 at 12:59; Status DC Sodium Chloride 1,000 ml @ 1,000 mls/hr 1X ONCE IV Last administered on 11:30; Start 03/06/17 at 11:00; Stop 03/06/17 at 11:59; Status DC Ondansetron HCl (Zofran) 4 mg PRN Q8HRS PRN IV NAUSEA/VOMITING; Start 03/06/17 at 11:00; Stop 03/07/17 at 08:24; Status DC Fentanyl Citrate (Fentanyl 2ml Vial) 50 mcg PRN Q2HR PRN IV PAIN Last administered on 03/07/17 08:29; Start 03/06/17 at 11:00; Stop 03/07/17 at 10:59; Status DC Sodium Chloride 1,000 ml @ 125 mls/hr Q8H IV Last administered on 03/07/17 01: 56; Start 03/06/17 at 10:56; Stop 03/07/17 at 10:55; Status DC Acetaminophen (Tylenol) 650 mg PRN Q4HRS PRN PO FEVER; Start 03/06/17 at 11:00; Stop 03/07/17 at 10:59; Status DC Vancomycin HCl 1.5 gm/Sodium Chloride 500 ml @ 250 mls/hr Q8H IV Last administered on 03/07/17 08:30; Start 03/06/17 at 17:30; Stop 03/07/17 at 17:43; Status DC Vancomycin HCl 1 each 1X ONCE MC ; Start 03/07/17 at 17:00; Stop 03/07/17 at 17: 01; Status DC Vancomycin HCl (Vanco Per Pharmacy) 1 each PRN DAILY PRN MC PRN Last administered on 03/07/17 18:05; Start 03/06/17 at 12:30; Stop 03/08/17 at 14:20; Status DC Ceftriaxone Sodium 1 gm/ Sodium Chloride 50 ml @ 100 mls/hr Q24H IV Last administered on 03/08/17 16:08; Start 03/06/17 at 13:30; Stop 03/09/17 at 08:44; Status DC Acetaminophen/ Hydrocodone Bitart (Lortab 7.5/325) 1 tab PRN Q4HRS PRN PO PAIN Last administered on 03/10/17 08:03; Start 03/06/17 at 14:00 Insulin Aspart (Novolog) 0-9 UNITS TIDWMEALS SQ Last administered on 03/10/17 08:09; Start 03/06/17 at 17:00 Dextrose (Dextrose 50%-Water Syringe) 12.5 gm PRN Q15MIN PRN IV SEE COMMENTS; Start 03/06/17 at 14:00 Insulin Detemir (Levemir) 12 units QHS SQ Last administered on 03/07/17 21:52; Start 03/06/17 at 21:00; Stop 03/08/17 at 12:42; Status DC Lisinopril (Prinivil) 10 mg 1X ONCE PO Last administered on 03/06/17 14:14; Start 03/06/17 at 14:00; Stop 03/06/17 at 14:01; Status DC Lisinopril (Prinivil) 10 mg DAILY PO Last administered on 03/10/17 08:03; Start 03/07/17 at 09:00 Insulin Aspart (Novolog) 8 units TIDAC SQ Last administered on 03/08/17 12:27; Start 03/06/17 at 16:30; Stop 03/08/17 at 12:42; Status DC Docusate Sodium (Colace) 100 mg DAILY PO ; Start 03/07/17 at 09:00 Polyethylene Glycol (miraLAX PACKET) 17 gm PRN DAILY PRN PO CONSTIPATION; Start 03/06/17 at 15:45 Metformin HCl (Glucophage) 500 mg BIDWMEALS PO ; Start 03/06/17 at 17:00; Stop at 18:15; Status DC Gadobutrol (Gadavist) 10 mmol 1X ONCE IV Last administered on 03/06/17 16:57; Start 03/06/17 at 16:45; Stop 03/06/17 at 16:46; Status DC Ondansetron HCl (Zofran) 4 mg PRN Q6HRS PRN IV NAUSEA/VOMITING; Start 03/07/17 at 08:23; Stop 03/07/17 at 12:27; Status DC Ondansetron HCl (Zofran) 4 mg PRN Q6HRS PRN IV NAUSEA/VOMITING; Start 03/07/17 at 08:45; Stop 03/08/17 at 08:44; Status DC Fentanyl Citrate (Fentanyl 2ml Vial) 25 mcg PRN Q5MIN PRN IV MILD PAIN; Start 03/07/17 at 08:45; Stop 03/07/17 at 18:00; Status DC Fentanyl Citrate (Fentanyl 2ml Vial) 50 mcg PRN Q5MIN PRN IV MODERATE PAIN Last administered on 03/07/17 10:49; Start 03/07/17 at 08:45; Stop 03/07/17 at 18: 00; Status DC Ringer's Solution 1,000 ml @ 0 mls/hr Q0M IV ; Start 03/07/17 at 08:31; Stop 03/07/17 at 20:30; Status DC Lidocaine HCl 2 ml PRN 1X PRN ID PRIOR TO IV START; Start 03/07/17 at 08:45; Stop 03/07/17 at 18:00; Status DC Prochlorperazine Edisylate (Compazine) 5 mg PACU PRN PRN IV NAUSEA, MRX1; Start 03/07/17 at 08:45; Stop 03/07/17 at 18:00; Status DC Dexamethasone Sodium Phosphate (Decadron) 20 mg STK-MED ONCE .ROUTE ; Start 03/07 at 08:34; Stop 03/07/17 at 08:35; Status DC Propofol 20 ml @ As Directed STK-MED ONCE IV ; Start 03/07/17 at 08:34; Stop 03/07 at 08:35; Status DC Lidocaine HCl (Lidocaine Pf 2% Vial) 5 ml STK-MED ONCE .ROUTE ; Start 03/07/17 at 08:34; Stop 03/07/17 at 08:35; Status DC Fentanyl Citrate (Fentanyl 5ml Vial) 250 mcg STK-MED ONCE .ROUTE ; Start at 08:57; Stop 03/07/17 at 08:58; Status DC Silver Sulfadiazine (Silvadene) 25 lillian STK-MED ONCE TP ; Start 03/07/17 at 09:03 ; Stop 03/07/17 at 09:04; Status DC Lidocaine HCl 30 ml STK-MED ONCE .ROUTE ; Start 03/07/17 at 09:03; Stop 03/07/17 at 09:04; Status DC Sevoflurane (Ultane) 30 ml STK-MED ONCE IH ; Start 03/07/17 at 09:43; Stop at 09:44; Status DC Metronidazole (Flagyl) 500 mg Q12HR PO Last administered on 03/10/17t 08:03; Start 03/07/17 at 13:30 Vancomycin HCl 1.5 gm/Sodium Chloride 500 ml @ 250 mls/hr Q12H IV Last administered on 03/08/17 09:47; Start 03/07/17 at 21:00; Stop 03/08/17 at 14:20; Status DC Vancomycin HCl 1 each 1X ONCE MC ; Start 03/09/17 at 08:30; Stop 03/09/17 at 08: 30; Status DC Insulin Aspart (Novolog) 10 units TIDAC SQ Last administered on 03/10/17 08:08 ; Start 03/08/17 at 16:30 Insulin Detemir (Levemir) 20 units QHS SQ Last administered on 03/09/17 21:20; Start 03/08/17 at 21:00 Ceftriaxone Sodium 1 gm/ Sodium Chloride 50 ml @ 100 mls/hr ONCE ONCE IV Last administered on 03/09/17 10:04; Start 03/09/17 at 09:00; Stop 03/09/17 at 09: 29; Status DC Cefpodoxime Proxetil (Vantin) 200 mg BID PO ; Start 03/10/17 at 21:00; Stop at 21:00; Status DC Cefpodoxime Proxetil (Vantin) 200 mg BID PO Last administered on 03/10/17 09:17 ; Start 03/10/17 at 09:00 Active Scripts Active Reported Hydrocodone-Apap 5-325 (Hydrocodone Bit/Acetaminophen) 1 Each Tablet 1 Tab PO PRN Q6HRS PRN Vitals/I & O Vital Sign - Last 24 Hours 03/09/17 03/09/17 03/09/17 03/09/17 12:00 14:45 16:45 19:05 Temp 97.7 98.8 97.7 98.8 Pulse 80 80 Resp 14 20 14 20 B/P (MAP) 131/72 (91) 132/71 (91) Pulse Ox 93 96 O2 Delivery Room Air Room Air Room Air Room Air 03/09/17 03/09/17 03/09/17 03/10/17 20:00 21:15 23:05 03:00 Temp 98.1 98.1 Pulse 80 Resp 18 18 17 B/P (MAP) 138/74 (95) Pulse Ox 96 97 97 O2 Delivery Room Air Room Air Room Air Room Air 03/10/17 03/10/17 03/10/17 03/10/17 03:05 07:00 08:00 08:03 Temp 98.1 98.2 98.1 98.2 Pulse 71 77 Resp 18 15 17 B/P (MAP) 156/87 (110) 135/76 (95) Pulse Ox 97 96 96 O2 Delivery Room Air Room Air Room Air Room Air 03/10/17 03/10/17 03/10/17 08:03 09:03 11:00 Temp 98.4 98.4 Pulse 77 74 Resp 20 18 B/P (MAP) 135/76 108/72 (84) Pulse Ox 96 95 O2 Delivery Room Air Room Air Intake and Output 03/09/17 03/09/17 03/10/17 15:00 23:00 07:00 Intake Total 450 ml 1490 ml Balance 450 ml 1490 ml KIMBERLY ALEXANDRE III DO March 10, 2017 11:32
--- NOTE | 2017-03-10 12:48 | PDOC2 ---
CONSULT Date of Consult Date of Consult DATE: 03/10/17 TIME: 12:39 Reason for Consult Reason for Consult: Right foot diabetic Simmons 3 ulceration with evidence of muscle necrosis. Referring Physician Referring Physician: Dr. Hurt Identification/Chief Complaint Chief Complaint Right foot wound with associated cellulitis Source Source: Chart review, Patient History of Present Illness Reason for Visit: This is a 41-year-old patient previously seen in the wound care center for diabetic ulceration of the right foot. Despite efforts at conservative treatment he demonstrated worsening with progression of a right forefoot ulcer to diabetic Simmons 3 status, associated significant soft tissue infection requiring surgical debridement and and of biotic therapy. Despite efforts to offload appropriately, manage moisture, treat infection, maximize vascular status, emphasize nutrition and sustained manageable blood glucose measurements , the patient demonstrated not just poor healing but progression of the disease. Following admission to the hospital he underwent surgical debridement. Vascular status was deemed appropriate for vascular surgery. He is status post intervention with negative pressure wound therapy application present today. He is awaiting discharge when home support his deemed appropriate. At this time he is on oral antibiotic therapy. Appetite and intake are adequate. Past Medical History Cardiovascular: No pertinent hx Pulmonary: No pertinent hx GI: No pertinent hx Heme/Onc: No pertinent hx Hepatobiliary: No pertinent hx Endocrine: Diabetes Past Surgical History Past Surgical History: No pertinent history Family History Family History: No Significant Social History No ALCOHOL: none Drugs: None Current Problem List Problem List Problems Medical Problems: (1) Cellulitis Status: Acute (2) Type 2 diabetes mellitus with foot ulcer Status: Acute Current Medications Current Medications Current Medications Vancomycin HCl (Vanco Per Pharmacy) 1 each 1X ONCE MC Last administered on 03/06 10:15; Start 03/06/17 at 10:15; Stop 03/06/17 at 11:48; Status DC Vancomycin HCl 2 gm/Sodium Chloride 500 ml @ 250 mls/hr 1X ONCE IV Last administered on 03/06/17 11:30; Start 03/06/17 at 11:00; Stop 03/06/17 at 12:59; Status DC Sodium Chloride 1,000 ml @ 1,000 mls/hr 1X ONCE IV Last administered on 11:30; Start 03/06/17 at 11:00; Stop 03/06/17 at 11:59; Status DC Ondansetron HCl (Zofran) 4 mg PRN Q8HRS PRN IV NAUSEA/VOMITING; Start 03/06/17 at 11:00; Stop 03/07/17 at 08:24; Status DC Fentanyl Citrate (Fentanyl 2ml Vial) 50 mcg PRN Q2HR PRN IV PAIN Last administered on 03/07/17 08:29; Start 03/06/17 at 11:00; Stop 03/07/17 at 10:59; Status DC Sodium Chloride 1,000 ml @ 125 mls/hr Q8H IV Last administered on 03/07/17 01: 56; Start 03/06/17 at 10:56; Stop 03/07/17 at 10:55; Status DC Acetaminophen (Tylenol) 650 mg PRN Q4HRS PRN PO FEVER; Start 03/06/17 at 11:00; Stop 03/07/17 at 10:59; Status DC Vancomycin HCl 1.5 gm/Sodium Chloride 500 ml @ 250 mls/hr Q8H IV Last administered on 03/07/17 08:30; Start 03/06/17 at 17:30; Stop 03/07/17 at 17:43; Status DC Vancomycin HCl 1 each 1X ONCE MC ; Start 03/07/17 at 17:00; Stop 03/07/17 at 17: 01; Status DC Vancomycin HCl (Vanco Per Pharmacy) 1 each PRN DAILY PRN MC PRN Last administered on 03/07/17 18:05; Start 03/06/17 at 12:30; Stop 03/08/17 at 14:20; Status DC Ceftriaxone Sodium 1 gm/ Sodium Chloride 50 ml @ 100 mls/hr Q24H IV Last administered on 03/08/17 16:08; Start 03/06/17 at 13:30; Stop 03/09/17 at 08:44; Status DC Acetaminophen/ Hydrocodone Bitart (Lortab 7.5/325) 1 tab PRN Q4HRS PRN PO PAIN Last administered on 03/10/17 08:03; Start 03/06/17 at 14:00 Insulin Aspart (Novolog) 0-9 UNITS TIDWMEALS SQ Last administered on 03/10/17 08:09; Start 03/06/17 at 17:00 Dextrose (Dextrose 50%-Water Syringe) 12.5 gm PRN Q15MIN PRN IV SEE COMMENTS; Start 03/06/17 at 14:00 Insulin Detemir (Levemir) 12 units QHS SQ Last administered on 03/07/17 21:52; Start 03/06/17 at 21:00; Stop 03/08/17 at 12:42; Status DC Lisinopril (Prinivil) 10 mg 1X ONCE PO Last administered on 03/06/17 14:14; Start 03/06/17 at 14:00; Stop 03/06/17 at 14:01; Status DC Lisinopril (Prinivil) 10 mg DAILY PO Last administered on 03/10/17 08:03; Start 03/07/17 at 09:00 Insulin Aspart (Novolog) 8 units TIDAC SQ Last administered on 03/08/17 12:27; Start 03/06/17 at 16:30; Stop 03/08/17 at 12:42; Status DC Docusate Sodium (Colace) 100 mg DAILY PO ; Start 03/07/17 at 09:00 Polyethylene Glycol (miraLAX PACKET) 17 gm PRN DAILY PRN PO CONSTIPATION; Start 03/06/17 at 15:45 Metformin HCl (Glucophage) 500 mg BIDWMEALS PO ; Start 03/06/17 at 17:00; Stop at 18:15; Status DC Gadobutrol (Gadavist) 10 mmol 1X ONCE IV Last administered on 03/06/17 16:57; Start 03/06/17 at 16:45; Stop 03/06/17 at 16:46; Status DC Ondansetron HCl (Zofran) 4 mg PRN Q6HRS PRN IV NAUSEA/VOMITING; Start 03/07/17 at 08:23; Stop 03/07/17 at 12:27; Status DC Ondansetron HCl (Zofran) 4 mg PRN Q6HRS PRN IV NAUSEA/VOMITING; Start 03/07/17 at 08:45; Stop 03/08/17 at 08:44; Status DC Fentanyl Citrate (Fentanyl 2ml Vial) 25 mcg PRN Q5MIN PRN IV MILD PAIN; Start 03/07/17 at 08:45; Stop 03/07/17 at 18:00; Status DC Fentanyl Citrate (Fentanyl 2ml Vial) 50 mcg PRN Q5MIN PRN IV MODERATE PAIN Last administered on 03/07/17t 10:49; Start 03/07/17 at 08:45; Stop 03/07/17 at 18: 00; Status DC Ringer's Solution 1,000 ml @ 0 mls/hr Q0M IV ; Start 03/07/17 at 08:31; Stop 03/07/17 at 20:30; Status DC Lidocaine HCl 2 ml PRN 1X PRN ID PRIOR TO IV START; Start 03/07/17 at 08:45; Stop 03/07/17 at 18:00; Status DC Prochlorperazine Edisylate (Compazine) 5 mg PACU PRN PRN IV NAUSEA, MRX1; Start 03/07/17 at 08:45; Stop 03/07/17 at 18:00; Status DC Dexamethasone Sodium Phosphate (Decadron) 20 mg STK-MED ONCE .ROUTE ; Start 03/07 at 08:34; Stop 03/07/17 at 08:35; Status DC Propofol 20 ml @ As Directed STK-MED ONCE IV ; Start 03/07/17 at 08:34; Stop 03/07 at 08:35; Status DC Lidocaine HCl (Lidocaine Pf 2% Vial) 5 ml STK-MED ONCE .ROUTE ; Start 03/07/17 at 08:34; Stop 03/07/17 at 08:35; Status DC Fentanyl Citrate (Fentanyl 5ml Vial) 250 mcg STK-MED ONCE .ROUTE ; Start at 08:57; Stop 03/07/17 at 08:58; Status DC Silver Sulfadiazine (Silvadene) 25 lillian STK-MED ONCE TP ; Start 03/07/17 at 09:03 ; Stop 03/07/17 at 09:04; Status DC Lidocaine HCl 30 ml STK-MED ONCE .ROUTE ; Start 03/07/17 at 09:03; Stop 03/07/17 at 09:04; Status DC Sevoflurane (Ultane) 30 ml STK-MED ONCE IH ; Start 03/07/17 at 09:43; Stop at 09:44; Status DC Metronidazole (Flagyl) 500 mg Q12HR PO Last administered on 03/10/17t 08:03; Start 03/07/17 at 13:30 Vancomycin HCl 1.5 gm/Sodium Chloride 500 ml @ 250 mls/hr Q12H IV Last administered on 03/08/17 09:47; Start 03/07/17 at 21:00; Stop 03/08/17 at 14:20; Status DC Vancomycin HCl 1 each 1X ONCE MC ; Start 03/09/17 at 08:30; Stop 03/09/17 at 08: 30; Status DC Insulin Aspart (Novolog) 10 units TIDAC SQ Last administered on 03/10/17 08:08 ; Start 03/08/17 at 16:30 Insulin Detemir (Levemir) 20 units QHS SQ Last administered on 03/09/17 21:20; Start 03/08/17 at 21:00 Ceftriaxone Sodium 1 gm/ Sodium Chloride 50 ml @ 100 mls/hr ONCE ONCE IV Last administered on 03/09/17 10:04; Start 03/09/17 at 09:00; Stop 03/09/17 at 09: 29; Status DC Cefpodoxime Proxetil (Vantin) 200 mg BID PO ; Start 03/10/17 at 21:00; Stop at 21:00; Status DC Cefpodoxime Proxetil (Vantin) 200 mg BID PO Last administered on 03/10/17 09:17 ; Start 03/10/17 at 09:00 Active Scripts Active Reported Hydrocodone-Apap 5-325 (Hydrocodone Bit/Acetaminophen) 1 Each Tablet 1 Tab PO PRN Q6HRS PRN Allergies Allergies: Coded Allergies: codeine (Verified Allergy, Intermediate, Hives, 08/18/16) ROS Musculoskeletal: Yes Gait Disturbance (compatible with recent foot debridement) Neurological: Yes Numbness/Tingling (diabetic neuropathy) Physical Exam General: Alert, Oriented X3, Cooperative, No acute distress HEENT: Atraumatic, PERRLA, EOMI, Mucous membr. moist/pink Lungs: Clear to auscultation Heart: Regular rate, Normal S1, Normal S2 Abdomen: Normal bowel sounds, Soft Extremities: No clubbing, No cyanosis, No edema, Normal pulses Neuro: Normal speech, Sensation intact (failed filament testing 5 over 5 plantar surface locations) Psych/Mental Status: Mental status NL, Mood NL Vitals VITALS Vital Signs Date Time Temp Pulse Resp B/P (MAP) Pulse Ox O2 Delivery O2 Flow Rate FiO2 03/10/17 11:00 98.4 74 18 108/72 (84) 95 Room Air 98.4 Labs Labs Laboratory Tests Test 03/08/17 17:12 03/08/17 20:10 03/09/17 07:08 03/09/17 11:54 Glucose (Fingerstick) 237 mg/dL (70-99) 300 mg/dL (70-99) 238 mg/dL (70-99) 245 mg/dL (70-99) Test 03/09/17 16:42 03/09/17 21:14 03/10/17 07:05 03/10/17 12:14 Glucose (Fingerstick) 223 mg/dL (70-99) 293 mg/dL (70-99) 212 mg/dL (70-99) 207 mg/dL (70-99) Laboratory Tests Test 03/09/17 16:42 03/09/17 21:14 03/10/17 07:05 03/10/17 12:14 Glucose (Fingerstick) 223 mg/dL (70-99) 293 mg/dL (70-99) 212 mg/dL (70-99) 207 mg/dL (70-99) Images Images No evidence of bony involvement on MRI Assessment/Plan Assessment/Plan Diabetic Simmons 3 ulceration to the right forefoot with evidence of muscle necrosis Continue current antibiotic therapy. Anticipate wound care follow-up within the next 7 days. Based on the patient's history, review of systems, physical examination and testing, treatment with hyperbaric oxygen both reasonable medically necessary. Would recommend institution of an initial 20 treatment regimen performed on Thursday through Thursday with 90 minute treatment at 2.0 KEYA. Physician assessment weekly. Thank you for allowing us to participate patient's care. RICARDO BURR DO March 10, 2017 12:48
[2017-03-10 15:00] VITALS: BP 141/75
[2017-03-10 19:48] VITALS: BP 126/71
[2017-03-10] MEDS ORDERED: CEFPODOXIME PROXETIL 100 MG TABLET. PO SCH (21:00)
[2017-03-10] MEDS: INSULIN DETEMIR 300 UNITS/3 ML INSULN.PEN. SQ SCH (21:33)
[2017-03-10 23:40] VITALS: BP 145/76
[2017-03-11 03:38] VITALS: BP 143/81
[2017-03-11 07:00] VITALS: BP 157/84
[2017-03-11] MEDS: HYDROcodone/APAP 7.5/325MG 1 TAB TABLET PO PRN ×2 (08:24→11:51)
[2017-03-11] MEDS: LISINOPRIL 10 MG TABLET PO SCH (08:24)
[2017-03-11] MEDS: metroNIDAZOLE 500 MG TABLET PO SCH (08:24)
[2017-03-11] MEDS: CEFPODOXIME PROXETIL 100 MG TABLET. PO SCH (08:25)
[2017-03-11] MEDS: INSULIN ASPART 300 UNITS/3 ML INSULN.PEN SQ SCH ×4 (08:30→11:57)
[2017-03-11] MEDS: DOCUSATE SODIUM 100 MG CAPSULE. PO SCH (08:32)
--- NOTE | 2017-03-11 10:58 | PDOC ---
PROGRESS NOTES Chief Complaint Chief Complaint acute on chronic wound to lateral foot near 5th metatarsal cellulitis tachycardia leukocytosis Sepsis DM 2 Diarrhea from metformin History of Present Illness History of Present Illness Pt lying in bed comfortably. No acute complaints. Reported he was not discharged yesterday d/t awaiting wound vac placement. Wishes to go home today. Vitals Vitals Vital Signs Date Time Temp Pulse Resp B/P (MAP) Pulse Ox O2 Delivery O2 Flow Rate FiO2 03/11/17 09:24 20 96 Room Air 03/11/17 08:24 77 157/84 03/11/17 07:00 97.7 97.7 Physical Exam General: Alert, Oriented X3, Cooperative, No acute distress Heart: Regular rate, Normal S1, Normal S2 Lungs: Clear, Other (no wheezing) Abdomen: Normal bowel sounds, Soft Extremities: No clubbing, No cyanosis, No edema, Normal pulses Skin: No rashes, No significant lesion, Other (Ulceration and breakdown of diabetic wound on right foot improving) Labs LABS Laboratory Tests Test 03/10/17 12:14 03/10/17 20:57 03/11/17 08:09 Glucose (Fingerstick) 207 mg/dL (70-99) 267 mg/dL (70-99) 294 mg/dL (70-99) Assessment and Plan Assessmemt and Plan Problems Medical Problems: (1) Cellulitis Status: Acute (2) Type 2 diabetes mellitus with foot ulcer Status: Acute acute on chronic wound to lateral foot near 5th metatarsal cellulitis tachycardia leukocytosis Sepsis DM 2 Diarrhea from metformin Plan: -Per Dr. Gray - recommends hyperbaric oxygen with initial 20 treatment regimen performed on Thursday through Thursday with 90 minute treatment at 2.0 KEYA and physician assessment weekly -Discharge today -Follow up with wound clinic -Repeat HgA1c in 3 months - 11.2 on 03/07/17 -Follow up with PCP for diabetic management -Subspecialist input appreciated Problems: Comment Review of Relevant I have reviewed the following items gabrielle (where applicable) has been applied. Labs Laboratory Tests Test 03/09/17 11:54 03/09/17 16:42 03/09/17 21:14 03/10/17 07:05 Glucose (Fingerstick) 245 mg/dL (70-99) 223 mg/dL (70-99) 293 mg/dL (70-99) 212 mg/dL (70-99) Test 03/10/17 12:14 03/10/17 20:57 03/11/17 08:09 Glucose (Fingerstick) 207 mg/dL (70-99) 267 mg/dL (70-99) 294 mg/dL (70-99) Laboratory Tests Test 03/10/17 12:14 03/10/17 20:57 03/11/17 08:09 Glucose (Fingerstick) 207 mg/dL (70-99) 267 mg/dL (70-99) 294 mg/dL (70-99) Microbiology 03/06/17 Blood Culture - Final, Complete NO GROWTH AFTER 5 DAYS 03/07/17 Anaerobic/Aerobic Culture - Preliminary, Resulted 03/07/17 Anaerobic Culture Result 1 (SCAR) - Preliminary, Resulted 03/07/17 Aerobic Culture - Preliminary, Resulted 03/07/17 Aerobic Culture Result 1 (SCAR) - Preliminary, Resulted Medications Current Medications Vancomycin HCl (Vanco Per Pharmacy) 1 each 1X ONCE MC Last administered on 03/06 10:15; Start 03/06/17 at 10:15; Stop 03/06/17 at 11:48; Status DC Vancomycin HCl 2 gm/Sodium Chloride 500 ml @ 250 mls/hr 1X ONCE IV Last administered on 03/06/17 11:30; Start 03/06/17 at 11:00; Stop 03/06/17 at 12:59; Status DC Sodium Chloride 1,000 ml @ 1,000 mls/hr 1X ONCE IV Last administered on 11:30; Start 03/06/17 at 11:00; Stop 03/06/17 at 11:59; Status DC Ondansetron HCl (Zofran) 4 mg PRN Q8HRS PRN IV NAUSEA/VOMITING; Start 03/06/17 at 11:00; Stop 03/07/17 at 08:24; Status DC Fentanyl Citrate (Fentanyl 2ml Vial) 50 mcg PRN Q2HR PRN IV PAIN Last administered on 03/07/17 08:29; Start 03/06/17 at 11:00; Stop 03/07/17 at 10:59; Status DC Sodium Chloride 1,000 ml @ 125 mls/hr Q8H IV Last administered on 03/07/17 01: 56; Start 03/06/17 at 10:56; Stop 03/07/17 at 10:55; Status DC Acetaminophen (Tylenol) 650 mg PRN Q4HRS PRN PO FEVER; Start 03/06/17 at 11:00; Stop 03/07/17 at 10:59; Status DC Vancomycin HCl 1.5 gm/Sodium Chloride 500 ml @ 250 mls/hr Q8H IV Last administered on 03/07/17 08:30; Start 03/06/17 at 17:30; Stop 03/07/17 at 17:43; Status DC Vancomycin HCl 1 each 1X ONCE MC ; Start 03/07/17 at 17:00; Stop 03/07/17 at 17: 01; Status DC Vancomycin HCl (Vanco Per Pharmacy) 1 each PRN DAILY PRN MC PRN Last administered on 03/07/17 18:05; Start 03/06/17 at 12:30; Stop 03/08/17 at 14:20; Status DC Ceftriaxone Sodium 1 gm/ Sodium Chloride 50 ml @ 100 mls/hr Q24H IV Last administered on 03/08/17 16:08; Start 03/06/17 at 13:30; Stop 03/09/17 at 08:44; Status DC Acetaminophen/ Hydrocodone Bitart (Lortab 7.5/325) 1 tab PRN Q4HRS PRN PO PAIN Last administered on 03/11/17 08:24; Start 03/06/17 at 14:00 Insulin Aspart (Novolog) 0-9 UNITS TIDWMEALS SQ Last administered on 03/11/17 08:31; Start 03/06/17 at 17:00 Dextrose (Dextrose 50%-Water Syringe) 12.5 gm PRN Q15MIN PRN IV SEE COMMENTS; Start 03/06/17 at 14:00 Insulin Detemir (Levemir) 12 units QHS SQ Last administered on 03/07/17 21:52; Start 03/06/17 at 21:00; Stop 03/08/17 at 12:42; Status DC Lisinopril (Prinivil) 10 mg 1X ONCE PO Last administered on 03/06/17 14:14; Start 03/06/17 at 14:00; Stop 03/06/17 at 14:01; Status DC Lisinopril (Prinivil) 10 mg DAILY PO Last administered on 03/11/17 08:24; Start 03/07/17 at 09:00 Insulin Aspart (Novolog) 8 units TIDAC SQ Last administered on 03/08/17 12:27; Start 03/06/17 at 16:30; Stop 03/08/17 at 12:42; Status DC Docusate Sodium (Colace) 100 mg DAILY PO ; Start 03/07/17 at 09:00 Polyethylene Glycol (miraLAX PACKET) 17 gm PRN DAILY PRN PO CONSTIPATION; Start 03/06/17 at 15:45 Metformin HCl (Glucophage) 500 mg BIDWMEALS PO ; Start 03/06/17 at 17:00; Stop at 18:15; Status DC Gadobutrol (Gadavist) 10 mmol 1X ONCE IV Last administered on 03/06/17 16:57; Start 03/06/17 at 16:45; Stop 03/06/17 at 16:46; Status DC Ondansetron HCl (Zofran) 4 mg PRN Q6HRS PRN IV NAUSEA/VOMITING; Start 03/07/17 at 08:23; Stop 03/07/17 at 12:27; Status DC Ondansetron HCl (Zofran) 4 mg PRN Q6HRS PRN IV NAUSEA/VOMITING; Start 03/07/17 at 08:45; Stop 03/08/17 at 08:44; Status DC Fentanyl Citrate (Fentanyl 2ml Vial) 25 mcg PRN Q5MIN PRN IV MILD PAIN; Start 03/07/17 at 08:45; Stop 03/07/17 at 18:00; Status DC Fentanyl Citrate (Fentanyl 2ml Vial) 50 mcg PRN Q5MIN PRN IV MODERATE PAIN Last administered on 03/07/17 10:49; Start 03/07/17 at 08:45; Stop 03/07/17 at 18: 00; Status DC Ringer's Solution 1,000 ml @ 0 mls/hr Q0M IV ; Start 03/07/17 at 08:31; Stop 03/07/17 at 20:30; Status DC Lidocaine HCl 2 ml PRN 1X PRN ID PRIOR TO IV START; Start 03/07/17 at 08:45; Stop 03/07/17 at 18:00; Status DC Prochlorperazine Edisylate (Compazine) 5 mg PACU PRN PRN IV NAUSEA, MRX1; Start 03/07/17 at 08:45; Stop 03/07/17 at 18:00; Status DC Dexamethasone Sodium Phosphate (Decadron) 20 mg STK-MED ONCE .ROUTE ; Start 03/07 at 08:34; Stop 03/07/17 at 08:35; Status DC Propofol 20 ml @ As Directed STK-MED ONCE IV ; Start 03/07/17 at 08:34; Stop 03/07 at 08:35; Status DC Lidocaine HCl (Lidocaine Pf 2% Vial) 5 ml STK-MED ONCE .ROUTE ; Start 03/07/17 at 08:34; Stop 03/07/17 at 08:35; Status DC Fentanyl Citrate (Fentanyl 5ml Vial) 250 mcg STK-MED ONCE .ROUTE ; Start at 08:57; Stop 03/07/17 at 08:58; Status DC Silver Sulfadiazine (Silvadene) 25 lillian STK-MED ONCE TP ; Start 03/07/17 at 09:03 ; Stop 03/07/17 at 09:04; Status DC Lidocaine HCl 30 ml STK-MED ONCE .ROUTE ; Start 03/07/17 at 09:03; Stop 03/07/17 at 09:04; Status DC Sevoflurane (Ultane) 30 ml STK-MED ONCE IH ; Start 03/07/17 at 09:43; Stop at 09:44; Status DC Metronidazole (Flagyl) 500 mg Q12HR PO Last administered on 03/11/17 08:24; Start 03/07/17 at 13:30 Vancomycin HCl 1.5 gm/Sodium Chloride 500 ml @ 250 mls/hr Q12H IV Last administered on 03/08/17 09:47; Start 03/07/17 at 21:00; Stop 03/08/17 at 14:20; Status DC Vancomycin HCl 1 each 1X ONCE MC ; Start 03/09/17 at 08:30; Stop 03/09/17 at 08: 30; Status DC Insulin Aspart (Novolog) 10 units TIDAC SQ Last administered on 03/11/17 08:30 ; Start 03/08/17 at 16:30 Insulin Detemir (Levemir) 20 units QHS SQ Last administered on 03/10/17 21:33; Start 03/08/17 at 21:00 Ceftriaxone Sodium 1 gm/ Sodium Chloride 50 ml @ 100 mls/hr ONCE ONCE IV Last administered on 03/09/17 10:04; Start 03/09/17 at 09:00; Stop 03/09/17 at 09: 29; Status DC Cefpodoxime Proxetil (Vantin) 200 mg BID PO ; Start 03/10/17 at 21:00; Stop at 21:00; Status DC Cefpodoxime Proxetil (Vantin) 200 mg BID PO Last administered on 03/11/17 08: 25; Start 03/10/17 at 09:00 Active Scripts Active Reported Hydrocodone-Apap 5-325 (Hydrocodone Bit/Acetaminophen) 1 Each Tablet 1 Tab PO PRN Q6HRS PRN Vitals/I & O Vital Sign - Last 24 Hours 03/10/17 03/10/17 03/10/17 03/10/17 11:00 12:54 15:00 17:19 Temp 98.4 98.4 98.4 98.4 Pulse 74 69 Resp 18 20 18 18 B/P (MAP) 108/72 (84) 141/75 (97) Pulse Ox 95 95 97 97 O2 Delivery Room Air Room Air Room Air Room Air 03/10/17 03/10/17 03/10/17 03/10/17 19:48 20:00 21:27 23:40 Temp 98.8 97.7 98.8 97.7 Pulse 78 67 Resp 16 18 16 B/P (MAP) 126/71 (89) 145/76 (99) Pulse Ox 97 97 98 O2 Delivery Room Air Room Air Room Air Room Air 03/11/17 03/11/17 03/11/17 03/11/17 03:38 07:00 08:00 08:24 Temp 97.9 97.7 97.9 97.7 Pulse 73 77 Resp 16 18 18 B/P (MAP) 143/81 (101) 157/84 (108) Pulse Ox 96 96 96 O2 Delivery Room Air Room Air Room Air Room Air 03/11/17 03/11/17 08:24 09:24 Pulse 77 Resp 20 B/P (MAP) 157/84 Pulse Ox 96 O2 Delivery Room Air Intake and Output 03/10/17 03/10/17 03/11/17 15:00 23:00 07:00 Intake Total 880 ml 720 ml Output Total 350 ml Balance 530 ml 720 ml KIMBERLY ALEXANDRE III DO March 11, 2017 10:58
[2017-03-11 11:00] VITALS: BP 136/83
--- NOTE | 2017-03-11 11:56 | PDOC ---
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 VSS VAC wound in place, no surrounding erythema. 2+ DP pulse Plan: Discharge today continue oral abx wound VAC in place [facility] follow-up MARIAM SINGH MD March 11, 2017 11:56
== END 2017-03-11 13:10 | disposition home or self-care (01) | DRG 854 ==
LOC: ER 09:54 → 6 SOUTH 11:28
PROVIDERS: ADMIT Internal Medicine; ATTEND Internal Medicine
PROC: 0LBV0ZZ Excision of Right Foot Tendon, Open Approach (ICD-10-PCS; principal; 2017-03-07 09:00)
DX: A41.9 Sepsis, unspecified organism (principal); L02.611 Cutaneous abscess of right foot; M86.9 Osteomyelitis, unspecified; L03.031 Cellulitis of right toe; B95.1 Streptococcus, group B, as the cause of diseases classified elsewhere; E11.42 Type 2 diabetes mellitus with diabetic polyneuropathy; E11.621 Type 2 diabetes mellitus with foot ulcer; E11.628 Type 2 diabetes mellitus with other skin complications; L97.519 Non-pressure chronic ulcer of other part of right foot with unspecified severity; Z88.6 Allergy status to analgesic agent
CPT/HCPCS: 36415; 73630; 73720; 80048; 80202; 82947; 83036; 83605; 85007; 85027; 85651; 87040; 87071; 87075; 87186; 87205; 87641; 96374; A9585; J0696; J1100; J1815; J2704; J3010; J3370; J7030; J7040; 99285-25

== ENCOUNTER → 2017-03-06 | Outpatient (CLI) | payer OTHER ==
[2017-01-02 08:29] VITALS: BP 146/87
[~2017-03-06] MED LIST: HYDR-2666 PO
== END | disposition home or self-care (01) ==
LOC: PMGWOUND 08:08
PROVIDERS: ATTEND Preventive Medicine Undersea and Hyperbaric Medicine
DX: E11.621 Type 2 diabetes mellitus with foot ulcer (principal); L97.511 Non-pressure chronic ulcer of other part of right foot limited to breakdown of skin; E11.40 Type 2 diabetes mellitus with diabetic neuropathy, unspecified
CPT/HCPCS: 99215

== ENCOUNTER → 2017-03-11 | Outpatient (CLI) | payer OTHER ==
[2017-03-11 11:00] VITALS: BP 136/83
== END | disposition home or self-care (01) ==
LOC: PMGWNDHBO 13:23
PROVIDERS: ATTEND Preventive Medicine Undersea and Hyperbaric Medicine
DX: E11.621 Type 2 diabetes mellitus with foot ulcer (principal); L97.511 Non-pressure chronic ulcer of other part of right foot limited to breakdown of skin; E11.40 Type 2 diabetes mellitus with diabetic neuropathy, unspecified; E11.69 Type 2 diabetes mellitus with other specified complication; M86.68 Other chronic osteomyelitis, other site
CPT/HCPCS: 82947; G0277

== ENCOUNTER → 2017-03-16 | Outpatient (CLI) | payer OTHER ==
[2017-03-11 11:00] VITALS: BP 136/83
== END | disposition home or self-care (01) ==
LOC: PMGWOUND 12:45
PROVIDERS: ATTEND Emergency Medicine Undersea and Hyperbaric Medicine
DX: E11.621 Type 2 diabetes mellitus with foot ulcer (principal); L97.511 Non-pressure chronic ulcer of other part of right foot limited to breakdown of skin; E11.40 Type 2 diabetes mellitus with diabetic neuropathy, unspecified
CPT/HCPCS: 82947; 97605; G0277; 11042

== ENCOUNTER → 2017-04-03 | Outpatient (CLI) | payer OTHER ==
[2017-03-11 11:00] VITALS: BP 136/83
== END | disposition home or self-care (01) ==
LOC: PMGWOUND 07:30
PROVIDERS: ATTEND Preventive Medicine Undersea and Hyperbaric Medicine
DX: E11.621 Type 2 diabetes mellitus with foot ulcer (principal); E11.69 Type 2 diabetes mellitus with other specified complication; L97.513 Non-pressure chronic ulcer of other part of right foot with necrosis of muscle; M86.68 Other chronic osteomyelitis, other site; E11.42 Type 2 diabetes mellitus with diabetic polyneuropathy
CPT/HCPCS: 99213

== ENCOUNTER → 2017-04-07 | Outpatient (CLI) | payer OTHER ==
[2017-03-11 11:00] VITALS: BP 136/83
== END | disposition home or self-care (01) ==
LOC: PMGWOUND 09:00
PROVIDERS: ATTEND Emergency Medicine Undersea and Hyperbaric Medicine
DX: E11.621 Type 2 diabetes mellitus with foot ulcer (principal); L97.511 Non-pressure chronic ulcer of other part of right foot limited to breakdown of skin; E11.69 Type 2 diabetes mellitus with other specified complication; E11.42 Type 2 diabetes mellitus with diabetic polyneuropathy; M86.68 Other chronic osteomyelitis, other site
CPT/HCPCS: 99213

== ENCOUNTER → 2017-04-14 | Outpatient (CLI) | payer OTHER ==
[~2017-04-14] MED LIST changes: -HYDR-2666 PO; +HYDR-2758 PO
== END | disposition home or self-care (01) ==
LOC: PMGWOUND 08:54
PROVIDERS: ATTEND Emergency Medicine Undersea and Hyperbaric Medicine
DX: E11.621 Type 2 diabetes mellitus with foot ulcer (principal); L97.511 Non-pressure chronic ulcer of other part of right foot limited to breakdown of skin; E11.69 Type 2 diabetes mellitus with other specified complication; M86.68 Other chronic osteomyelitis, other site; E11.42 Type 2 diabetes mellitus with diabetic polyneuropathy
CPT/HCPCS: 99214

== ENCOUNTER → 2017-04-21 | Outpatient (CLI) | payer OTHER | END | disposition home or self-care (01) | LOC: PMGWOUND 09:33 | PROVIDERS: ATTEND Emergency Medicine Undersea and Hyperbaric Medicine | DX: E11.621 Type 2 diabetes mellitus with foot ulcer (principal); L97.513 Non-pressure chronic ulcer of other part of right foot with necrosis of muscle; E11.42 Type 2 diabetes mellitus with diabetic polyneuropathy; E11.69 Type 2 diabetes mellitus with other specified complication; M86.68 Other chronic osteomyelitis, other site | CPT/HCPCS: 97597 ==

== ENCOUNTER → 2017-04-28 | Outpatient (CLI) | payer OTHER | END | disposition home or self-care (01) | LOC: PMGWOUND 08:18 | PROVIDERS: ATTEND Emergency Medicine Undersea and Hyperbaric Medicine | DX: E11.621 Type 2 diabetes mellitus with foot ulcer (principal); L97.513 Non-pressure chronic ulcer of other part of right foot with necrosis of muscle; E11.42 Type 2 diabetes mellitus with diabetic polyneuropathy; E11.69 Type 2 diabetes mellitus with other specified complication; M86.68 Other chronic osteomyelitis, other site | CPT/HCPCS: 11042; 87071; 87075; 87205 ==

== ENCOUNTER → 2017-05-26 | Outpatient (CLI) | payer OTHER | END | disposition home or self-care (01) | LOC: PMGWOUND 07:49 | PROVIDERS: ATTEND Emergency Medicine Undersea and Hyperbaric Medicine | DX: E11.621 Type 2 diabetes mellitus with foot ulcer (principal); L97.513 Non-pressure chronic ulcer of other part of right foot with necrosis of muscle; E11.40 Type 2 diabetes mellitus with diabetic neuropathy, unspecified; E11.69 Type 2 diabetes mellitus with other specified complication; M86.68 Other chronic osteomyelitis, other site; E11.42 Type 2 diabetes mellitus with diabetic polyneuropathy | CPT/HCPCS: 99214 ==

== ENCOUNTER → 2017-06-02 | Outpatient (CLI) | payer OTHER | END | disposition home or self-care (01) | LOC: PMGWOUND 07:46 | PROVIDERS: ATTEND Emergency Medicine Undersea and Hyperbaric Medicine | DX: E11.621 Type 2 diabetes mellitus with foot ulcer (principal); L97.513 Non-pressure chronic ulcer of other part of right foot with necrosis of muscle; E11.69 Type 2 diabetes mellitus with other specified complication; M86.68 Other chronic osteomyelitis, other site; E11.42 Type 2 diabetes mellitus with diabetic polyneuropathy; L84 Corns and callosities | CPT/HCPCS: 11042 ==

== ENCOUNTER → 2017-06-03 | Outpatient (CLI) | payer OTHER | END | disposition home or self-care (01) | LOC: PMGWOUND 11:06 | PROVIDERS: ATTEND Emergency Medicine Undersea and Hyperbaric Medicine | DX: E11.621 Type 2 diabetes mellitus with foot ulcer (principal); L97.513 Non-pressure chronic ulcer of other part of right foot with necrosis of muscle; E11.69 Type 2 diabetes mellitus with other specified complication; M86.68 Other chronic osteomyelitis, other site; E11.42 Type 2 diabetes mellitus with diabetic polyneuropathy | CPT/HCPCS: 99213 ==

== ENCOUNTER → 2017-06-08 | Outpatient (CLI) | payer OTHER | END | disposition home or self-care (01) | LOC: PMGWOUND 07:40 | PROVIDERS: ATTEND Emergency Medicine Undersea and Hyperbaric Medicine | DX: E11.621 Type 2 diabetes mellitus with foot ulcer (principal); L97.513 Non-pressure chronic ulcer of other part of right foot with necrosis of muscle; E11.69 Type 2 diabetes mellitus with other specified complication; M86.68 Other chronic osteomyelitis, other site; E11.42 Type 2 diabetes mellitus with diabetic polyneuropathy | CPT/HCPCS: 11042 ==

== ENCOUNTER → 2017-06-15 | Outpatient (CLI) | payer OTHER | END | disposition home or self-care (01) | LOC: PMGWOUND 08:02 | PROVIDERS: ATTEND Emergency Medicine Undersea and Hyperbaric Medicine | DX: E11.621 Type 2 diabetes mellitus with foot ulcer (principal); L97.513 Non-pressure chronic ulcer of other part of right foot with necrosis of muscle; E11.69 Type 2 diabetes mellitus with other specified complication; M86.68 Other chronic osteomyelitis, other site; E11.42 Type 2 diabetes mellitus with diabetic polyneuropathy | CPT/HCPCS: 99213 ==